=== PATIENT | female | born 1975 | race Caucasian/White ===

== ENCOUNTER 2016-07-28 10:50 | Inpatient (IN) | payer OTHER ==
[~2016-07-28] VITALS: Ht 154.9 cm; Wt 55.1 kg
[~2016-07-28 10:50] MED LIST: DOXY100T18 PO; LISI-519 PO; LORTA5 PO; METR-1 PO
[2016-07-28 10:54] VITALS: BP 132/84; PULSE 128; RESP 24; TEMP 98.8; O2SAT 100
--- NOTE | 2016-07-28 14:48 | PD ---
HPI Chief Complaint: Medical Clearance Time Seen by Provider: 14:47 Travel History International Travel<30 days: No Contact w/Intl Traveler<30days: No Traveled to known affect area: No History of Present Illness HPI 40-year-old female came to the emergency room with history of right shoulder pain for past 3-4 days. Patient seems to be in significant pain and distress. Her temperature was 100.9 after she was brought in the room. Patient is an IV drug abuser although her last IV drug abuse was 3 weeks ago she said. She was tachycardic and in triage it was 128. She denies of any other significant past medical history. [facility] Past Medical History Narrative Medical History of IV drug abuse. Rest of her past medical, social and family history was reviewed from the nursing note. Hypertension: Yes Immunizations Current: No Tetanus Vaccination: Never Vaccinated Influenza Vaccination: No ?: Unknown LMP: MONTHS : 3 Para: 3 Past Surgical History Surgical History: No Previous Surgery Section: Yes Social History Alcohol Use: Yes (EVERY OTHER DAY ) Tobacco Use: Yes Substance Use: Yes (PAST HEROIN IV) Allergies-Medications (Allergen,Severity, Reaction): Coded Allergies: Penicillin (Verified Allergy, Mild, Rash, 07/30/16) *MDRO Multi-Drug Resistant Organism (Verified Adverse Reaction, Unknown, 04/20/16) MRSA PCR screen POSITIVE - 04/19/16 Comments List of allergies reviewed from the nursing note. Reported Meds & Prescriptions Reported Meds & Active Scripts Active Lisinopril 5 Mg Tab 5 Mg PO DAILY Narrative Medication List of home medications reviewed from the nursing note. Review of Systems Except as stated in HPI: all other systems reviewed are Neg Physical Exam Narrative GENERAL: Awake, alert, anxious, significant distress SKIN: Warm and dry. Right shoulder area the skin is erythematous and warm and extremely tender to touch. HEAD: Atraumatic. Normocephalic. EYES: Pupils equal and round. No scleral icterus. No injection or drainage. ENT: No nasal bleeding or discharge. Mucous membranes pink and moist. NECK: Trachea midline. No JVD. CARDIOVASCULAR: Regular rate and rhythm. No murmur appreciated. RESPIRATORY: No accessory muscle use. Clear to auscultation. Breath sounds equal bilaterally. GASTROINTESTINAL: Abdomen soft, non-tender, nondistended. Hepatic and splenic margins not palpable. MUSCULOSKELETAL: No obvious deformities. No clubbing. No cyanosis. No edema. Decreased range of motion at the right shoulder joint due to severe pain. NEUROLOGICAL: Awake and alert. No obvious cranial nerve deficits. Motor grossly within normal limits. Normal speech. PSYCHIATRIC: Appropriate mood and affect; insight and judgment normal. Data Data Last Documented VS Vital Signs Date Time Temp Pulse Resp B/P Pulse Ox O2 Delivery O2 Flow Rate FiO2 07/28/16 16:38 22 07/28/16 15:40 99 Room Air 07/28/16 14:36 105 07/28/16 10:54 98.8 132/84 Orders Electrocardiogram (07/28/16 13:22) Complete Blood Count With Diff (07/28/16 13:22) Comprehensive Metabolic Panel (07/28/16 13:22) Iv Access Insert/Monitor (07/28/16 13:22) Lactic Acid Sepsis Protocol (07/28/16 15:13) Urinalysis - C+S If Indicated (07/28/16 15:13) Blood Culture (07/28/16 15:13) Chest, Single Ap (07/28/16 15:13) Blood Glucose (07/28/16 15:13) Ecg Monitoring (07/28/16 15:13) Oximetry (07/28/16 15:13) Oxygen Administration (07/28/16 15:13) Aztreonam Inj (Azactam Inj) (07/28/16 15:13) Vancomycin Inj (Vancomycin Inj) (07/28/16 15:13) Sodium Chlor 0.9% 1000 Ml Inj (Ns 1000 M (07/28/16 15:13) Sodium Chlor 0.9% 1000 Ml Inj (Ns 1000 M (07/28/16 15:13) Ketorolac Inj (Toradol Inj) (07/28/16 15:15) Westergren Sedimentation Rate (07/28/16 15:55) Sodium Chlor 0.9% 1000 Ml Inj (Ns 1000 M (07/28/16 16:30) C-Reactive Protein (Crp) (07/28/16 16:20) Shoulder, Limited(2vws) (07/28/16 ) Ibuprofen (Motrin) (07/28/16 17:00) Ct Shoulder W Iv Contrast (07/28/16 ) Admit Order (Ed Use Only) (07/28/16 17:05) Labs Laboratory Tests Test 07/28/16 15:20 White Blood Count 22.8 TH/MM3 Red Blood Count 4.48 MIL/MM3 Hemoglobin 13.7 GM/DL Hematocrit 39.7 % Mean Corpuscular Volume 88.6 FL Mean Corpuscular Hemoglobin 30.7 PG Mean Corpuscular Hemoglobin 34.7 % Concent Red Cell Distribution Width 14.4 % Platelet Count 192 TH/MM3 Mean Platelet Volume 9.2 FL Neutrophils (%) (Auto) 88.4 % Lymphocytes (%) (Auto) 5.4 % Monocytes (%) (Auto) 6.0 % Eosinophils (%) (Auto) 0.1 % Basophils (%) (Auto) 0.1 % Neutrophils # (Auto) 20.2 TH/MM3 Lymphocytes # (Auto) 1.2 TH/MM3 Monocytes # (Auto) 1.4 TH/MM3 Eosinophils # (Auto) 0.0 TH/MM3 Basophils # (Auto) 0.0 TH/MM3 CBC Comment DIFF FINAL Differential Comment Erythrocyte Sedimentation Rate 27 mm/hr Sodium Level 129 MEQ/L Potassium Level 4.2 MEQ/L Chloride Level 94 MEQ/L Carbon Dioxide Level 26.2 MEQ/L Anion Gap 9 MEQ/L Blood Urea Nitrogen 19 MG/DL Creatinine 0.97 MG/DL Estimat Glomerular Filtration 64 ML/MIN Rate Random Glucose 117 MG/DL Lactic Acid Level 1.8 mmol/L Calcium Level 9.1 MG/DL Total Bilirubin 0.4 MG/DL Aspartate Amino Transf 31 U/L (AST/SGOT) Alanine Aminotransferase 22 U/L (ALT/SGPT) Alkaline Phosphatase 102 U/L C-Reactive Protein 28.90 MG/DL Total Protein 8.2 GM/DL Albumin 3.2 GM/DL Human Chorionic Gonadotropin, LESS THAN 1 Quant MIU/ML MDM Medical Decision Making Medical Screen Exam Complete: Yes Emergency Medical Condition: Yes Medical Record Reviewed: Yes Interpretation(s) Twelve-lead EKG was reviewed by me. Normal sinus rhythm, normal axis, tachycardia, inverted T waves in inferior leads. Differential Diagnosis Sepsis, septic joint effusion, osteomyelitis Narrative Course 4:24 PM patient is given IV vancomycin and aztreonam. IV fluid been given as per sepsis protocol. Blood test results of back and patient has significant leukocytosis. I have given her IV Toradol for her pain. Awaiting for the x- ray to be done and resulted. Patient will require admission. 4:52 PM x-rays are done. I took a look at them and they look to be within normal limit. Awaiting for the hospitalist to call back for admission. Critical Care Narrative Aggregate critical care time was 30 minutes. Time to perform other separately billable procedures was not included in the critical care time. My time did not include minutes spent treating any other patients simultaneously or on activities that did not directly contribute to the patient's treatment. The services I provided to this patient were to treat and/or prevent clinically significant deterioration that could result in: Sepsis, sepsis protocol I provided critical care services requiring my management, as noted below: Chart data review, documentation time, medication orders and management, vital sign assessments/reviewing monitor data, ordering and reviewing lab tests, ordering and interpreting/reviewing x-rays and diagnostic studies, care of the patient and discussion of the patient with the admitting physicians. Procedures Procedure Narrative Emergency department US guided peripheral IV was performed with patient consent. Linear probe was used in the transverse views of the peripheral vein to assist with vascular access. 20-gauge Angiocath was put in left EJ in Trendelenburg position. Patient tolerated the procedure well. EKG Prior to Arrival: No Diagnosis Primary Impression: Sepsis Qualified Code: A41.9 - Sepsis, due to unspecified organism Additional Impressions: Polysubstance dependence Right shoulder pain Qualified Code: M25.511 - Acute pain of right shoulder Hyponatremia Admitting Information Admitting Physician Requests: Admit Scripts Hydrocodone-Acetaminophen ([place])7.5-325 mg Tab1 Tab PO Q6H PRN (PAIN) #60 TAB Ref 0 Prov:Mehdi Hernandez MD 07/31/16 Mukund Rivas MD Jul 28, 2016 14:48
[2016-07-28] MEDS ORDERED: AZTREONAM INJ 2,000 MG in SODIUM CHLORIDE 0.9% INJ 100 ML IV STA (15:13)
[2016-07-28] MEDS ORDERED: SODIUM CHLOR 0.9% 1000 ML INJ 800 ML IV ONE (15:13)
[2016-07-28] MEDS ORDERED: SODIUM CHLOR 0.9% 1000 ML INJ 1,000 ML IV ONE ×2 (15:13→16:30)
[2016-07-28] MEDS ORDERED: VANCOMYCIN INJ 1,000 MG in SODIUM CHLOR 0.9% 250 ML INJ 250 ML IV STA (15:13)
[2016-07-28] MEDS ORDERED: KETOROLAC TROMETHAMINE 30 MG/ML (IVP) VIAL IV PUSH ONE (15:15)
[2016-07-28 15:40] VITALS: O2SAT 99
[2016-07-28 16:02] LABS: ALKALINE PHOSPHATASE 102 U/L (45-117); AUTOMATED NEUTROPHIL # 20.2 TH/MM3 (1.8-7.7); BASOPHIL % 0.1 % (0.0-2.0); EOSINOPHIL % 0.1 % (0.0-4.0); HEMATOCRIT 39.7 % (35.0-46.0); HEMO FLAGS DIFF FINAL; LYMPH % 5.4 % (9.0-44.0); LYMPHOCYTE # 1.2 TH/MM3 (1.0-4.8); MEAN CELL VOLUME 88.6 FL (80.0-100.0); MEAN CORPUSCULAR HEMOGLOBIN 30.7 PG (27.0-34.0); MEAN CORPUSCULAR HGB CONC 34.7 % (32.0-36.0); NEUT % 88.4 % (16.0-70.0); PLATELET COUNT 192 TH/MM3 (150-450); RED BLOOD COUNT 4.48 MIL/MM3 (4.00-5.30); RED CELL DISTRIBUTION WIDTH 14.4 % (11.6-17.2); TOTAL BILIRUBIN ADULT 0.4 MG/DL (0.2-1.0); WHITE BLOOD COUNT 22.8 TH/MM3 (4.0-11.0)
[2016-07-28 16:05] LABS: ALT (GPT) 22 U/L (10-53); ANION GAP 9 MEQ/L (5-15); AST (GOT) 31 U/L (15-37); BICARBONATE 26.2 MEQ/L (21.0-32.0); BLOOD UREA NITROGEN 19 MG/DL (7-18); CHLORIDE 94 MEQ/L (98-107); GLOMERULAR FILTRATION RATE 64 ML/MIN (>89); POTASSIUM 4.2 MEQ/L (3.5-5.1); SODIUM (NA) 129 MEQ/L (136-145)
--- NOTE | 2016-07-28 16:39 | RADRPT ---
EXAM DATE/TIME: 07/28/2016 16:21 [facility] COMPARISON: CHEST SINGLE AP, April 18, 2016, 8:53. INDICATIONS : Fever. MEDICAL HISTORY : Hypertension. SURGICAL HISTORY : None. ENCOUNTER: Initial ACUITY: 1 day PAIN SCORE: 0/10 LOCATION: Bilateral chest FINDINGS: A single view of the chest demonstrates the lungs to be symmetrically aerated without evidence of mas s, infiltrate or effusion. The cardiomediastinal contours are unremarkable. Osseous structures are intact. CONCLUSION: No acute cardiopulmonary process. Joe Hodges MD on July 28, 2016 at 16:32 Board Certified Radiologist. This report was verified electronically.
--- NOTE | 2016-07-28 16:53 | RADRPT ---
EXAM DATE/TIME: 07/28/2016 16:16 [facility] COMPARISON: No previous studies available for comparison. INDICATIONS : Right shoulder pain, unknown injury. MEDICAL HISTORY : None. SURGICAL HISTORY : None. ENCOUNTER: Initial ACUITY: 1 day PAIN SCORE: 10/10 LOCATION: Right shoulder. FINDINGS: Two view examination of the right shoulder demonstrates no evidence of fracture or dislocation. The glenohumeral and acromioclavicular joints are maintained. Bony mineralization is normal. CONCLUSION: No acute osseous injury or significant degenerative changes. Joe Hodges MD on July 28, 2016 at 16:52 Board Certified Radiologist. This report was verified electronically.
[2016-07-28] MEDS ORDERED: IBUPROFEN 600 MG TAB PO ONE (17:00)
[2016-07-28] MEDS ORDERED: ONDANSETRON HCL 4 MG/2 ML VIAL IV PUSH PRN (18:15)
--- NOTE | 2016-07-28 18:21 | HHI.HP ---
[facility] Service [place] [facility] Primary Care Physician No Primary Care Physician Admission Diagnosis sepsis, right shoulder pain Diagnoses: Chief Complaint: Right shoulder pain Travel History International Travel<30 Days: No Contact w/Intl Traveler <30 Da: No Traveled to Known Affected Are: No Sepsis Criteria SIRS Criteria (2 or more): Temp > 100.9 or < 96.8, Heart rate over 90, WBC > 62645, < 4000 or > 10% bands Sepsis Criteria (SIRS+source): Infect source susp/known History of Present Illness Patient is a very pleasant 40-year-old female who admits to active IV drug heroine plus cocaine who states that he did his last IV injection about 4 weeks ago. 3 days ago started having right shoulder pain constant associated with fever of 101.9 MAXIMUM with chills. Patient self medicated with Tylenol with no improvement. This morning woke up unable to move her right joint shoulder joint which prompted patient to call EMS Temperature here in the ER was 100.9 white count of 22,000 . Patient complains of generalized aches and pains, very emotional and hysterical. Patient admitted for further evaluation and management Patient denies any history of previous MRSA infections, endocarditis or sepsis LMP 6 months ago - irregular cycles states history of hypertension but can't afford meds Review of Systems Constitutional: DENIES: Diaphoretic episodes, Fatigue, Fever, Weight gain, Weight loss, Chills, Dizziness, Change in appetite, Night Sweats Endocrine: DENIES: Abnorml menstrual pattern, Heat/cold intolerance, Polydipsia , Polyuria, Polyphagia Eyes: DENIES: Blurred vision, Diplopia, Eye inflammation, Eye pain, Vision loss , Photosensitivity, Double Vision Ears, nose, mouth, throat: DENIES: Tinnitus, Hearing loss, Vertigo, Nasal discharge, Oral lesions, Throat pain, Hoarseness, Ear Pain, Running Nose, Epistaxis, Sinus Pain, Toothache, Odynophagia Respiratory: DENIES: Apneas, Cough, Snoring, Wheezing, Hemoptysis, Sputum production, Shortness of breath Cardiovascular: DENIES: Chest pain, Palpitations, Syncope, Dyspnea on Exertion , PND, Lower Extremity Edema, Orthopnea, Claudication Gastrointestinal: DENIES: Abdominal pain, Black stools, Bloody stools, Constipation, Diarrhea, Nausea, Vomiting, Difficulty Swallowing, Anorexia Genitourinary: DENIES: Abnormal vaginal bleeding, Dysmenorrhea, Dyspareunia, Sexual dysfunction, Urinary frequency, Urinary incontinence, Urgency, Hematuria , Dysuria, Nocturia, Vaginal discharge Musculoskeletal: COMPLAINS OF: Joint pain (right shoulder), DENIES: Muscle aches, Stiffness, Joint Swelling, Back pain, Neck pain Integumentary: DENIES: Abnormal pigmentation, Pruritus, Rash, Nail changes, Breast masses, Breast skin changes, Nipple discharge Hematologic/lymphatic: DENIES: Bruising, Lymphadenopathy Immunologic/allergic: DENIES: Eczema, Urticaria Neurologic: DENIES: Abnormal gait, Headache, Localized weakness, Paresthesias, Seizures, Speech Problems, Tremor, Poor Balance Psychiatric: DENIES: Anxiety, Confusion, Mood changes, Depression, Hallucinations, Agitation, Suicidal Ideation, Homicidal Ideation, Delusions Past Family Social History Past Medical History States history of hypertension but not on any medications because the patient she can't afford the medications. Past Surgical History No major surgeries Reported Medications Tylenol when necessary for pain Allergies: Coded Allergies: Penicillin (Verified Allergy, Severe, 07/28/16) ALLERGY *MDRO Multi-Drug Resistant Organism (Verified Adverse Reaction, Unknown, 04/20/16) MRSA PCR screen POSITIVE - 04/19/16 Family History per patient unknown Social History Smokes 1 pack per day Admits to IV cocaine and heroine use last use about 4 weeks ago alcohol use 1 to twice a week Physical Exam Vital Signs Vital Signs Date Time Temp Pulse Resp B/P Pulse Ox O2 Delivery O2 Flow Rate FiO2 07/28/16 16:38 22 07/28/16 15:40 99 Room Air 07/28/16 15:40 99 Room Air 07/28/16 14:36 105 26 07/28/16 10:54 98.8 128 24 132/84 100 Room Air Physical Exam GENERAL: Awake alert in pain SKIN: multiple old healed wounds HEAD: Atraumatic. Normocephalic. No temporal or scalp tenderness. EYES: Pupils equal round and reactive. Extraocular motions intact. ENT: Nose without bleeding, Throat without erythema, Uvula midline. Airway patent. NECK: Trachea midline. No JVD or lymphadenopathy. Supple, right side of the neck tender and erythema no meningeal signs. CARDIOVASCULAR: Tachycardic and regular rhythm without murmurs, gallops, or rubs. RESPIRATORY: Clear to auscultation. Breath sounds equal bilaterally. No wheezes , rales, or rhonchi. GASTROINTESTINAL: Abdomen soft, non-tender, nondistended.. No guarding. MUSCULOSKELETAL: Right shoulder with marked erythema and swelling very tender to touch with fluctuance - Very limited range of motion Right second toe with marked erythema. Right knee with area of erythema no swelling , no effusion, good range of motion No calf tenderness. Negative Homans sign bilaterally. NEUROLOGICAL: Awake and alert. Cranial nerves II through XII intact. Movement of the right upper extremity limited to range of motion Laboratory Laboratory Tests Test 07/28/16 15:20 White Blood Count 22.8 Red Blood Count 4.48 Hemoglobin 13.7 Hematocrit 39.7 Mean Corpuscular Volume 88.6 Mean Corpuscular Hemoglobin 30.7 Mean Corpuscular Hemoglobin 34.7 Concent Red Cell Distribution Width 14.4 Platelet Count 192 Mean Platelet Volume 9.2 Neutrophils (%) (Auto) 88.4 Lymphocytes (%) (Auto) 5.4 Monocytes (%) (Auto) 6.0 Eosinophils (%) (Auto) 0.1 Basophils (%) (Auto) 0.1 Neutrophils # (Auto) 20.2 Lymphocytes # (Auto) 1.2 Monocytes # (Auto) 1.4 Eosinophils # (Auto) 0.0 Basophils # (Auto) 0.0 CBC Comment DIFF FINAL Differential Comment Erythrocyte Sedimentation Rate 27 Sodium Level 129 Potassium Level 4.2 Chloride Level 94 Carbon Dioxide Level 26.2 Anion Gap 9 Blood Urea Nitrogen 19 Creatinine 0.97 Estimat Glomerular Filtration 64 Rate Random Glucose 117 Lactic Acid Level 1.8 Calcium Level 9.1 Total Bilirubin 0.4 Aspartate Amino Transf 31 (AST/SGOT) Alanine Aminotransferase 22 (ALT/SGPT) Alkaline Phosphatase 102 C-Reactive Protein 28.90 Total Protein 8.2 Albumin 3.2 Date/Time Procedure Status Source Growth 07/28/16 15:25 Aerobic Blood Culture Received Blood Peripheral Pending 07/28/16 15:25 Anaerobic Blood Culture Received Blood Peripheral Pending Result Diagram: 07/28/16 1520 07/28/16 1520 Imaging Last Impressions Chest X-Ray 07/28/16 1513 Signed Impressions: Service Date/Time: July 16:21 - CONCLUSION: No acute cardiopulmonary process. Joe Hodges MD Shoulder X-Ray 07/28/16 0000 Signed Impressions: Service Date/Time: July 16:16 - CONCLUSION: No acute osseous injury or significant degenerative changes. Joe Hodges MD Septic Shock Reassessment Heart: Regular rate and rhythm Lungs: Clear Skin: Warm Peripheral Pulses: Bounding Right Radial Bounding Left Radial Bounding Right Popliteal Bounding Left Popliteal Bounding Right Dorsalis Pedis Bounding Left Dorsalis Pedis Bounding Right Posterior Tibial Bounding Left Posterior Tibial Capillary Refill: Brisk Assessment and Plan Assessment and Plan 40-year-old female presenting with Sepsis secondary to Septic right shoulder joint r/o underlying abscess/ osteomyelitis., right second toe cellulitis, right knee cellulitis CT of right shoulder ordered - check for fluid and if positive- order for aspiration and will send fluid studies. Start patient on IV vancomycin and IV Levaquin after fluid studies sent Follow CBC History of IV drug use Percocet when necessary for pain every 4 Discussed with her will not give any IV pain meds HYponatremia- mild ff lytes. check TSH PPI for GI prophylaxis Physician Certification 2 Midnight Certification Type: Admission for Inpatient Services Order for Inpatient Services The services are ordered in accordance with Medicare regulations or non- Medicare payer requirements, as applicable. In the case of services not specified as inpatient-only, they are appropriately provided as inpatient services in accordance with the 2-midnight benchmark. Estimated LOS (days): 3 days is the estimated time the patient will need to remain in the hospital, assuming treatment plan goals are met and no additional complications. Post-Hospital Plan: Not yet determined Kermit Villasenor MD Jul 28, 2016 18:20
[2016-07-28 19:09] LABS: BETA HCG QUANT LESS THAN 1 MIU/ML (0-5)
[2016-07-28 19:23] VITALS: BP 137/88; PULSE 104; RESP 18; TEMP 98.9; O2SAT 100
[2016-07-28] MEDS ORDERED: IOHEXOL 350 MG/ML 10 ML VIAL (for RAD DIAG) IV ONE (19:43)
[2016-07-28] MEDS: SODIUM CHLOR 0.9% 1000 ML INJ 1,000 ML IV SCH (19:55)
--- NOTE | 2016-07-28 19:55 | RADRPT ---
EXAM DATE/TIME: 07/28/2016 19:39 [facility] COMPARISON: SHOULDER RIGHT LTD (2VWS), July 28, 2016, 16:16. INDICATIONS : Right shoulder pain and erythema; evaluate for infection. IV CONTRAST: 68 cc Omnipaque 350 (iohexol) IV RADIATION DOSE: 12.08 CTDIvol (mGy) MEDICAL HISTORY : Hypertension. Substance abuse - heroin SURGICAL HISTORY : section. ENCOUNTER: Initial ACUITY: 1 day PAIN SCALE: 7/10 LOCATION: Right Shoulder TECHNIQUE: Volumetric scanning of the shoulder was performed. Using automated exposure control and adjustment o f the mA and/or kV according to patient size, radiation dose was kept as low as reasonably achievable to obtain optimal diagnostic quality images. FINDINGS: BONES: No evidence of fracture. Alignment is within normal limits. JOINTS: No evidence of joint narrowing or effusion. SOFT TISSUES: Muscles, tendons, and neurovascular structures are grossly unremarkable. The integrity of the rotato r cuff tendons cannot be reliably evaluated on CT without intra-articular contrast. No evidence of m ass, organized fluid collection, or foreign body. CONCLUSION: No acute bony abnormality. Bob Alford MD on July 28, 2016 at 19:50 Board Certified Radiologist. This report was verified electronically.
[2016-07-28] MEDS: oxyCODONE/ACETAMINOPHEN 5 MG/325 MG TAB PO PRN (19:56)
[2016-07-28] MEDS ORDERED: LEVOFLOXACIN 750 MG PREMIX INJ 150 ML IV SCH (20:00)
[2016-07-28] MEDS ORDERED: PANTOPRAZOLE SODIUM 40 MG VIAL IV PUSH SCH (20:00)
[2016-07-29] MEDS: oxyCODONE/ACETAMINOPHEN 5 MG/325 MG TAB PO PRN ×6 (00:11→21:59)
[2016-07-29 03:39] VITALS: BP 137/87; PULSE 90; RESP 18; O2SAT 97
[2016-07-29] MEDS: SODIUM CHLOR 0.9% 1000 ML INJ 1,000 ML IV SCH ×2 (04:11→16:17)
--- NOTE | 2016-07-29 07:51 | HHI.PR ---
Subjective Remarks patient feeling better this am, pain decreased, smiling now and interactive. T down voiding well, denies any chills she is in better spirits- pain controlled denies any constipation Objective Vitals Vital Signs Date Time Temp Pulse Resp B/P Pulse Ox O2 Delivery O2 Flow Rate FiO2 07/29/16 03:39 90 18 137/87 97 Room Air 07/28/16 19:23 98.9 104 18 137/88 100 Room Air 07/28/16 16:38 22 07/28/16 15:40 99 Room Air 07/28/16 15:40 99 Room Air 07/28/16 14:36 105 26 07/28/16 10:54 98.8 128 24 132/84 100 Room Air Result Diagram: 07/28/16 1520 07/28/16 1520 Imaging Last Impressions Chest X-Ray 07/28/16 1513 Signed Impressions: Service Date/Time: July 16:21 - CONCLUSION: No acute cardiopulmonary process. Joe Hodges MD Upper Extremity CT 07/28/16 0000 Signed Impressions: Service Date/Time: July 19:39 - CONCLUSION: No acute bony abnormality. Bob Alford MD Shoulder X-Ray 07/28/16 0000 Signed Impressions: Service Date/Time: July 16:16 - CONCLUSION: No acute osseous injury or significant degenerative changes. Joe Hodges MD Objective Remarks awake and alert, oriented x 3 anicteric no nuchal rigidity right shoulder - with persistent erythema, almond cutting machine tender to touch, softer- decrease fluctuance more range of motion during passive range of motion lungs clear regular rhythm abdomen soft, notender right knee- area of erythema on initial exam resolved, good range of motion right second toe erythema swelling and erythema persists- moves toes freely A/P Assessment and Plan 40-year-old female presenting with Sepsis secondary to Septic right shoulder joint with Cellulitis, right second toe cellulitis right knee erythema improved CT reviewed with Dr. Tate- no fluid collection. On IV Vancomycin. will DC Levaquin Follow CBC. ff blood cultures will get ID involved for recommendations PT consult- right shoulder eval and treat- to prevent frozen shoulder- History of IV drug use Percocet when necessary for pain every 4 Discussed with her will not give any IV pain meds HYponatremia- mild ff lytes. check TSH Zantac for GI prophylaxis patient up and ambulating Kermit Villasenor MD Jul 29, 2016 07:51
[2016-07-29 08:57] VITALS: BP 122/80; PULSE 88; RESP 19; TEMP 97.9; O2SAT 100
[2016-07-29] MEDS ORDERED: VANCOMYCIN INJ 1,000 MG in SODIUM CHLOR 0.9% 250 ML INJ 250 ML IV SCH (09:00)
[2016-07-29] MEDS: FAMOTIDINE 20 MG TAB PO SCH ×2 (09:00→21:58)
[2016-07-29] MEDS: VANCOMYCIN 1,000 MG/NS 250 ML IV SCH ×2 (09:00)
[2016-07-29 11:08] LABS: BACTERIA, URINE FEW /hpf; BLOOD, URINE SMALL (NEG); GLUCOSE,URINE 150 mg/dL (NEG); GRANULAR CAST, URINE 1 /lpf; KETONE, URINE NEG (NEG); MUCUS URINE FEW /lpf (OCC); NITRITE,URINE NEG (NEG); PH, URINE 5.5 (5.0-8.5); SQUAMOUS EPITHELIAL CELL URINE 6 /hpf (0-5); TRANSITIONAL EPI CELLS, URINE <1 /hpf; URINE COLOR YELLOW (YELLW/STRAW)
[2016-07-29 11:10] LABS: AMPHETAMINE, URINE NEG (NEG); BARBITURATES, URINE NEG (NEG); COCAINE, URINE POS (NEG)
[2016-07-29 11:12] LABS: COMMENT (UR) CATH-CULTURE IND; CULTURE IF INDICATED CATH CULTURE IND
[2016-07-29 12:00] VITALS: BP 136/93; PULSE 95; RESP 20; TEMP 95.7; O2SAT 100
[2016-07-29 12:04] LABS: AUTOMATED NEUTROPHIL # 9.9 TH/MM3 (1.8-7.7); BASOPHIL % 0.1 % (0.0-2.0); EOSINOPHIL # 0.1 TH/MM3 (0-0.4); EOSINOPHIL % 0.9 % (0.0-4.0); HEMATOCRIT 35.4 % (35.0-46.0); HEMO FLAGS DIFF FINAL; LYMPH % 11.6 % (9.0-44.0); LYMPHOCYTE # 1.4 TH/MM3 (1.0-4.8); MEAN CELL VOLUME 90.6 FL (80.0-100.0); MEAN CORPUSCULAR HEMOGLOBIN 30.2 PG (27.0-34.0); MEAN CORPUSCULAR HGB CONC 33.4 % (32.0-36.0); MONO % 7.9 % (0.0-8.0); NEUT % 79.5 % (16.0-70.0); PLATELET COUNT 122 TH/MM3 (150-450); RED CELL DISTRIBUTION WIDTH 14.7 % (11.6-17.2); WHITE BLOOD COUNT 12.5 TH/MM3 (4.0-11.0)
[2016-07-29 12:26] LABS: BICARBONATE 25.2 MEQ/L (21.0-32.0); POTASSIUM 3.7 MEQ/L (3.5-5.1)
--- NOTE | 2016-07-29 12:37 | PD.CONS ---
History of Present Illness Service Infectious disease Consult Requested By Dr Artis Villasenor Reason for Consult Evaluate patient with sepsis, right shoulder cellulitis, history of IV drug use Primary Care Physician No Primary Care Physician Diagnoses: History of Present Illness Patient seen and examined. Records reviewed. Patient is a 40-year-old female sent into the hospital complaining of pain and redness on her right shoulder. It started about 3 days prior to admission. She woke up that day and she was feeling fine, but that night she had an acute onset of significant pain on her right shoulder. It progressively worsened that she has significant pain with any kind of movement. She was having some fevers. She denies any significant respiratory complaint, or any GI complaints. She is complaining of significant myalgias and diffuse body aches. Patient has known IV drug use, but the last time she used it was about 4 weeks ago. She usually injects on her left side. She has not had any trauma. That day however she was coloring her hair and she could not really have any difficult time during the process. Patient had 2 blood cultures done and they are growing gram-positive cocci. Her white count was up to 22,000. She had a fever of 100.9. The CT of the shoulder which did not show any significant fluid in the joint or any bony abnormality. Patient currently still complaining of significant pain. She actually holds her right upper extremity close to her body. Infectious disease consultation has been requested to evaluate the patient. Review of Systems Constitutional: COMPLAINS OF: Fever, Chills, Night Sweats Ears, nose, mouth, throat: DENIES: Nasal discharge, Oral lesions, Throat pain, Ear Pain, Sinus Pain, Toothache Respiratory: DENIES: Cough, Shortness of breath Cardiovascular: DENIES: Chest pain, Palpitations Gastrointestinal: DENIES: Abdominal pain, Diarrhea, Nausea, Vomiting Genitourinary: DENIES: Urinary frequency, Hematuria, Dysuria Musculoskeletal: COMPLAINS OF: Joint pain, Muscle aches, Joint Swelling Integumentary: DENIES: Rash, Breast skin changes Immunologic/allergic: DENIES: Urticaria Neurologic: DENIES: Headache Psychiatric: COMPLAINS OF: Anxiety, DENIES: Hallucinations Past Family Social History Allergies: Coded Allergies: Penicillin (Verified Allergy, Severe, 07/28/16) ALLERGY *MDRO Multi-Drug Resistant Organism (Verified Adverse Reaction, Unknown, 04/20/16) MRSA PCR screen POSITIVE - 04/19/16 Past Medical History History of hypertension, not on meds Past Surgical History None Active Ordered Medications Tylenol Pepcid Zofran Percocet Vancomycin Social History Smokes 1 pack per day Admits to IV cocaine and heroine use last use about 4 weeks ago alcohol use 1 to twice a week Physical Exam Vital Signs Vital Signs Date Time Temp Pulse Resp B/P Pulse Ox O2 Delivery O2 Flow Rate FiO2 07/29/16 12:25 98 07/29/16 08:57 97.9 88 19 122/80 100 07/29/16 03:39 90 18 137/87 97 Room Air 07/28/16 19:23 98.9 104 18 137/88 100 Room Air 07/28/16 16:38 22 07/28/16 15:40 99 Room Air 07/28/16 15:40 99 Room Air 07/28/16 14:36 105 26 Physical Exam GENERAL: This is a well-nourished, well-developed female, in distress due to the pain in her right shoulder, not in respiratory distress. SKIN: Warm and dry. No generalized rash ecchymosis, or embolic lesions. HEAD: Atraumatic. Normocephalic. No temporal or scalp tenderness. EYES: [place] conjunctivae, no petechia or hemorrhage. Pupils equal round and reactive. Extraocular motions intact. No scleral icterus. No injection or drainage. ENT: Nose without bleeding, or purulent drainage. Moist oral mucosa. Throat without erythema, or exudate. Uvula midline. Airway patent. NECK: Trachea midline. No JVD or lymphadenopathy. Supple, nontender, no meningeal signs. CARDIOVASCULAR: Regular rate and rhythm without murmurs, gallops, or rubs. RESPIRATORY: Clear to auscultation. Breath sounds equal bilaterally. No wheezes , rales, or rhonchi. GASTROINTESTINAL: Abdomen mildly distended, bowel sounds are present and normoactive. No tenderness. No guarding or rebound. No hepato-splenomegaly, or palpable masses. MUSCULOSKELETAL: Pete lower extremities without clubbing, cyanosis, or edema. No joint tenderness, or effusion, or edema noted. No calf tenderness. LUE is unremarkable. RUE - has an area of erythema with tenderness on the top of her shoulder joint, into the supraclavicular area and clavicular area, with some swelling as well in the supraclavicular area, and pain on palpation of the clavicle and top of her shoulder joint. She refused to move her R shoulder joint. Difficult to feel for crepitation due to severe pain. NEUROLOGICAL: Awake and alert. Cranial nerves II through XII intact. Motor and sensory grossly within normal limits. Normal speech. PSYCH: very anxious, but cooperative LINE: PIV with no evidence of infection Laboratory Laboratory Tests Test 07/28/16 07/29/16 07/29/16 15:20 10:20 11:37 White Blood Count 22.8 12.5 Red Blood Count 4.48 3.90 Hemoglobin 13.7 11.8 Hematocrit 39.7 35.4 Mean Corpuscular Volume 88.6 90.6 Mean Corpuscular Hemoglobin 30.7 30.2 Mean Corpuscular Hemoglobin 34.7 33.4 Concent Red Cell Distribution Width 14.4 14.7 Platelet Count 192 122 Mean Platelet Volume 9.2 8.8 Neutrophils (%) (Auto) 88.4 79.5 Lymphocytes (%) (Auto) 5.4 11.6 Monocytes (%) (Auto) 6.0 7.9 Eosinophils (%) (Auto) 0.1 0.9 Basophils (%) (Auto) 0.1 0.1 Neutrophils # (Auto) 20.2 9.9 Lymphocytes # (Auto) 1.2 1.4 Monocytes # (Auto) 1.4 1.0 Eosinophils # (Auto) 0.0 0.1 Basophils # (Auto) 0.0 0.0 CBC Comment DIFF FINAL DIFF FINAL Differential Comment Erythrocyte Sedimentation Rate 27 Sodium Level 129 137 Potassium Level 4.2 3.7 Chloride Level 94 107 Carbon Dioxide Level 26.2 25.2 Anion Gap 9 5 Blood Urea Nitrogen 19 14 Creatinine 0.97 0.72 Estimat Glomerular Filtration 64 91 Rate Random Glucose 117 144 Lactic Acid Level 1.8 Calcium Level 9.1 7.7 Total Bilirubin 0.4 Aspartate Amino Transf 31 (AST/SGOT) Alanine Aminotransferase 22 (ALT/SGPT) Alkaline Phosphatase 102 C-Reactive Protein 28.90 Total Protein 8.2 Albumin 3.2 Human Chorionic Gonadotropin, LESS THAN 1 Quant Urine Color YELLOW Urine Turbidity HAZY Urine pH 5.5 Urine Specific [place] 1.035 Urine Protein 30 Urine Glucose (UA) 150 Urine Ketones NEG Urine Occult Blood SMALL Urine Nitrite NEG Urine Bilirubin NEG Urine Urobilinogen LESS THAN 2.0 Urine Leukocyte Esterase MOD Urine RBC 8 Urine WBC 16 Urine Squamous Epithelial 6 Cells Urine Transitional Epithelial <1 Cells Urine Renal Epithelial Cells Urine Bacteria FEW Urine Granular Casts 1 Urine Mucus FEW Urine Trichomonas RARE Microscopic Urinalysis Comment CATH-CULTURE IND Urine Opiates Screen POS Urine Barbiturates Screen NEG Urine Amphetamines Screen NEG Urine Benzodiazepines Screen NEG Urine Cocaine Screen POS Urine Cannabinoids Screen NEG Date/Time Procedure Status Source Growth 07/29/16 10:20 Urine Culture Received Urine Catheterized Urine Pending 07/28/16 15:25 Aerobic Blood Culture - Preliminary Resulted Blood Peripheral Gram Positive Cocci 07/28/16 15:25 Anaerobic Blood Culture - Preliminary Resulted Gram Positive Cocci Result Diagram: 07/29/16 1137 07/29/16 1137 Imaging RADIOLOGY STUDIES/FILMS REVIEWED Chest X-Ray 07/28/16 1513 Signed Impressions: Service Date/Time: July 16:21 - CONCLUSION: No acute cardiopulmonary process. Joe Hodges MD Upper Extremity CT 07/28/16 0000 Signed Impressions: Service Date/Time: July 19:39 - CONCLUSION: No acute bony abnormality. Bob Alford MD Shoulder X-Ray 07/28/16 0000 Signed Impressions: Service Date/Time: July 16:16 - CONCLUSION: No acute osseous injury or significant degenerative changes. Joe Hodges MD Assessment and Plan Assessment and Plan IMPRESSION Strep sepsis, with infection in the shoulder and supraclavicular area, ? 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 Next time thank you for this consultation Discussed Condition With Explained plan to the patient Shirley Leon MD Jul 29, 2016 12:37
[2016-07-29] MEDS ORDERED: Vancomycin Consult Pharmacy 1 EA OTHER SCH (14:15)
[2016-07-29 16:00] VITALS: BP 137/90; PULSE 101; RESP 20; TEMP 101.7; O2SAT 98
[2016-07-29] MEDS: VANCOMYCIN INJ 750 MG in SODIUM CHLOR 0.9% 250 ML INJ 250 ML IV SCH (16:17)
[2016-07-29] MEDS: ACETAMINOPHEN 325 MG TAB PO PRN (16:18)
--- NOTE | 2016-07-29 17:10 | EKG ---
Date Performed: 07/28/2016 Time Performed: 15:43:03 PTAGE: 40 years EKG: SINUS TACHYCARDIA NONSPECIFIC T-WAVE ABNORMALITY Compared to prior tracing no significant c hange ABNORMAL ECG PREVIOUS TRACING : 04/18/2016 08.04 DOCTOR: Rigoberto Villegas Interpretating Date/Time 12/07/2016 09:44:05
--- NOTE | 2016-07-29 20:03 | EC ---
Study Study Date:07/29/2016 STUDY CONCLUSIONS SUMMARY - Left ventricle: The cavity size was normal. Systolic function was normal. The estimated ejection fraction was in the range of 55% to 60%. Wall motion was normal; there were no regional wall motion abnormalities. - Pulmonary arteries: PA peak pressure: 45mm Hg (S). If LV function is below 40, please consider prescribing an ACEI or ARB or document rationale for non-use. PROCEDURE DATA STUDY STATUS: Elective. Procedure: Transthoracic echocardiography. Image quality was good. Scanning was performed from the parasternal, apical, and subcostal acoustic windows. Study completion: The patient tolerated the procedure well. Transthoracic echocardiography. M-mode, complete 2D, complete spectral Doppler, and color Doppler. Height: Height: 61in. Weight: Weight: 109.8lb. Body mass index: BMI: 20.8kg/m^2. Body surface area: BSA: 1.47m^2. Patient status: Inpatient. CARDIAC ANATOMY LEFT VENTRICLE: The cavity size was normal. Systolic function was normal. The estimated ejection fraction was in the range of 55% to 60%. Wall motion was normal; there were no regional wall motion abnormalities. AORTIC VALVE: The valve appears to be grossly normal. Doppler: There was no stenosis. No significant regurgitation. Valve area: 1.43cm^2(VTI). Indexed valve area: 0.97cm^2/m^2 (VTI). Valve area: 1.32cm^2 (Vmax). Indexed valve area: 0.9cm^2/m^2 (Vmax). Mean gradient: 4mm Hg (S). MITRAL VALVE: The valve appears to be grossly normal. Doppler: There was no evidence for stenosis. No significant regurgitation. LEFT ATRIUM: The atrium was normal in size. RIGHT VENTRICLE: The cavity size was normal. Systolic function was normal. PULMONIC VALVE: The valve appears to be grossly normal. Doppler: There was no evidence for stenosis. No significant regurgitation. TRICUSPID VALVE: The valve appears to be grossly normal. Doppler: There was no evidence for stenosis. Trace to mild regurgitation. PERICARDIUM: There was no pericardial effusion. Patient weight: 109.8lb _Ejection fraction:_ 65-75% _Fractional shortening:_ 32% up to 5Kg 5-11.5Kg 11.6-22.9Kg 23-45Kg 45-57Kg Aortic Root 7-13 <17 13-22 17-27 17-27 LA diam 6-13 <23 24-38 33-47 37-40 RVID 10-17 7-15 7-15 7-18 8-17 LVIDd 12-22 <32 24-38 33-47 37-40 LVPW 2-4 3-6 5-7 6-8 7-8 IVS 2-4 3-6 5-7 6-8 7-8 BASIC MEASUREMENTS ADULT NORMAL Left ventricle LV internal dimension, ED, chordal 43.8 mm 43-52 level, PLAX LV internal dimension, ES, chordal 26.5 mm 23-38 level, PLAX Fractional shortening, chordal level, 39 % >29 PLAX LV posterior wall thickness, ED 9.45 mm IVS/LVPW ratio, ED 1 <1.3 Ventricular septum Septal thickness, ED 9.46 mm Aortic valve Leaflet separation 20 mm 15-26 Aorta Root diameter, ED 26 mm Left atrium Anterior-posterior dimension 26 mm Anterior-posterior dimension index 1.77 cm/m^2 <2.2 BASIC MEASUREMENTS ADULT NORMAL Aortic valve Leaflet separation 20 mm 15-26 DOPPLER MEASUREMENTS ADULT NORMAL Main pulmonary artery Pressure, S *45 mm Hg =30 Aortic valve Peak velocity, S 128 cm/s Mean velocity, S 88.9 cm/s VTI, S 21.3 cm Mean gradient, S 4 mm Hg Valve area, VTI 1.43 cm^2 Valve area index, VTI 0.97 cm^2/m^2 Valve area, Vmax 1.32 cm^2 Valve area index, Vmax 0.9 cm^2/m^2 Mitral valve Peak E-wave velocity 53.3 cm/s Peak A-wave velocity 64.7 cm/s Deceleration time 155 ms 150-230 Peak E/A ratio 0.8 Tricuspid valve Regurgitant peak velocity 299 cm/s Peak RV-RA gradient, S 36 mm Hg Maximal regurgitant velocity 299 cm/s Systemic veins Estimated CVP 10 mm Hg Right ventricle RV pressure, S *46 mm Hg <30 Pulmonic valve Peak velocity, S 52.6 cm/s LEGEND: Mean values are shown as u=mean value. Asterisk (*) adorno values outside specified normal range. Prepared and signed by Candido Kaba [id number]
[2016-07-29 21:02] VITALS: BP 134/81; PULSE 106; RESP 20; TEMP 99.7; O2SAT 98
[2016-07-30 04:00] VITALS: BP 140/86; PULSE 94; RESP 18; TEMP 97.9; O2SAT 98
[2016-07-30] MEDS: oxyCODONE/ACETAMINOPHEN 5 MG/325 MG TAB PO PRN ×3 (05:25→17:29)
[2016-07-30] MEDS: VANCOMYCIN INJ 750 MG in SODIUM CHLOR 0.9% 250 ML INJ 250 ML IV SCH ×2 (05:25→17:27)
[2016-07-30 08:00] VITALS: BP 142/87; PULSE 96; RESP 16; TEMP 98.7; O2SAT 98
[2016-07-30] MEDS: FAMOTIDINE 20 MG TAB PO SCH ×2 (09:10→22:24)
[2016-07-30] MEDS: VANCOMYCIN 1,000 MG/NS 250 ML IV SCH ×2 (09:11)
[2016-07-30 12:00] VITALS: BP 139/91; PULSE 97; RESP 18; TEMP 98.7; O2SAT 99
--- NOTE | 2016-07-30 12:11 | HHI.PR ---
Subjective Remarks pain with movement of right shoulder T max 101 no nausea or vomiting Objective Vitals Vital Signs Date Time Temp Pulse Resp B/P Pulse Ox O2 Delivery O2 Flow Rate FiO2 07/30/16 08:00 98.7 96 16 142/87 98 07/30/16 04:00 97.9 94 18 140/86 98 07/29/16 21:02 99.7 106 20 134/81 98 07/29/16 16:00 101.7 101 20 137/90 98 07/29/16 12:25 98 I/O 07/29/16 07/29/16 07/29/16 07/30/16 07/30/16 07/30/16 07:00 15:00 23:00 07:00 15:00 23:00 Intake Total 480 ml Balance 480 ml Intake Oral 480 ml # Voids 2 2 3 # Bowel Movements 0 Result Diagram: 07/29/16 1137 07/29/16 1137 Imaging Last Impressions Chest X-Ray 07/28/16 1513 Signed Impressions: Service Date/Time: July 16:21 - CONCLUSION: No acute cardiopulmonary process. Joe Hodges MD Upper Extremity CT 07/28/16 0000 Signed Impressions: Service Date/Time: July 19:39 - CONCLUSION: No acute bony abnormality. Bob Alford MD Shoulder X-Ray 07/28/16 0000 Signed Impressions: Service Date/Time: July 16:16 - CONCLUSION: No acute osseous injury or significant degenerative changes. Joe Hodges MD Objective Remarks awake and alert, oriented x 3 anicteric no nuchal rigidity right shoulder - with persistent erythema, winder tender to touch, softer- decrease fluctuance, slightly more range of motion lungs clear regular rhythm abdomen soft, nontender right knee- area of erythema on initial exam resolved, good range of motion right second toe erythema swelling and erythema decrease- moves toes freely A/P Assessment and Plan 40-year-old female presenting with Gram + Sepsis secondary to Septic right shoulder joint with Cellulitis, right second toe cellulitis for MRI of right shoulder- pending CT reviewed with Dr. Tate- no fluid collection. On IV Vancomycin - pharmacy dosing Follow CBC. ff final Blood C and S Appreciate ID recommendations PT consult- right shoulder eval and treat- to prevent frozen shoulder- History of IV drug use Percocet when necessary for pain every 4 Discussed with her will not give any IV pain meds HYponatremia- resolved ff lytes. TSH mildly elevated. recheck in 6-8 weeks Zantac for GI prophylaxis patient up and ambulating Kermit Villasenor MD Jul 30, 2016 12:11
[2016-07-30] MEDS ORDERED: GADODIAMIDE PF 287 MG/ML 10 ML VIAL (for RAD MRI) IV ONE (13:27)
--- NOTE | 2016-07-30 14:19 | RADRPT ---
EXAM DATE/TIME: 07/30/2016 13:05 [facility] COMPARISON: No previous studies available for comparison. INDICATIONS : Cellulitis, right shoulder pain CONTRAST: 10 cc Omniscan (gadodiamide) IV MEDICAL HISTORY : Hypertension. IVDA SURGICAL HISTORY : section. ENCOUNTER: Initial ACUITY: 1 day PAIN SCORE: 6/10 LOCATION: Right shoulder TECHNIQUE: Multiplanar, multisequence MRI examination was performed with and without contrast. FINDINGS: There is heterogeneous marrow edema and decreased T1 signal abnormality in the distal several centime ters of the right clavicle. There is an effusion and synovitis in the acromioclavicular joint. Very l ocalized subchondral signal abnormality seen on the acromion side. In the soft tissues mainly above a nd posterior to the distal end of the right clavicle is a confluence of small rim-enhancing fluid col lections over approximately 6.9 cm transverse, 7.1 cm anterior to posterior and 2.6 cm craniocaudal r egion. Most of this is in trapezius and the subcutaneous tissues. The deltoid is also involved focall y, mainly its anterior and lateral portion near its origin. There is moderate subacromial/subdeltoid bursitis. Rotator cuff is intact. There are mild impingement type cystic changes of the greater tuberosity. Trace glenohumeral joint effusion. No signal changes of the glenoid or humeral head to support osteom yelitis. . CONCLUSION: Osteomyelitis of the distal 3 cm of the clavicle. There is very focal involvement in the subchondral region of the acromion. There is an irregular abscess in the overlying soft tissues, primarily in tra pezius but focally involving deltoid and the overlying subcutaneous fat. The abscess is irregular but estimated at approximately 6.9 x 7.1 x 2.6 cm. The most superficial portion of the fluid collection is about 7 mm beneath the skin. Bob Nieto MD on July 30, 2016 at 14:12 Board Certified Radiologist. This report was verified electronically.
[2016-07-30] MEDS ORDERED: PHARMACY ORDERED LAB XX ONE (15:45)
[2016-07-30 16:00] VITALS: BP 148/97; PULSE 100; RESP 16; TEMP 98.9; O2SAT 98
[2016-07-30] MEDS: ACETAMINOPHEN 325 MG TAB PO PRN ×2 (17:29→22:23)
[2016-07-30 20:00] VITALS: BP 145/79; PULSE 100; RESP 18; TEMP 102; O2SAT 98
[2016-07-30] MEDS ORDERED: HYDROmorphone HCL PF 1 MG/ML VIAL SQ ONE (20:30)
[2016-07-30] MEDS: SODIUM CHLOR 0.9% 1000 ML INJ 1,000 ML IV SCH ×2 (22:29)
--- NOTE | 2016-07-30 23:29 | HHI.IDPN ---
Subjective Subjective Remarks is a 40 y/o F with PMHX of IVDA. Admitted with Strep Sepsis, Right Deltoid abscess, probable endocarditis. Overnight events reviewed. Tmax 102 F Complains of right shoulder pain and decreased range of motion. No rash No diarrhea. Antibiotics Vanco IV Lines Line sites with no e/o infection. Past Medical History IVDA Allergies: Coded Allergies: Penicillin (Verified Allergy, Mild, Rash, 07/30/16) *MDRO Multi-Drug Resistant Organism (Verified Adverse Reaction, Unknown, 04/20/16) MRSA PCR screen POSITIVE - 04/19/16 Objective . Vital Signs Date Time Temp Pulse Resp B/P Pulse Ox O2 Delivery O2 Flow Rate FiO2 07/30/16 20:00 102.0 100 18 145/79 98 07/30/16 16:00 98.9 100 16 148/97 98 07/30/16 12:00 98.7 97 18 139/91 99 07/30/16 08:00 98.7 96 16 142/87 98 07/30/16 04:00 97.9 94 18 140/86 98 07/29/16 07/29/16 07/30/16 15:00 23:00 07:00 Intake Total 480 ml Balance 480 ml Intake Oral 480 ml # Voids 2 3 # Bowel Movements 0 . Laboratory Tests Test 07/29/16 11:37 White Blood Count 12.5 TH/MM3 Red Blood Count 3.90 MIL/MM3 Hemoglobin 11.8 GM/DL Hematocrit 35.4 % Mean Corpuscular Volume 90.6 FL Mean Corpuscular Hemoglobin 30.2 PG Mean Corpuscular Hemoglobin 33.4 % Concent Red Cell Distribution Width 14.7 % Platelet Count 122 TH/MM3 Mean Platelet Volume 8.8 FL Neutrophils (%) (Auto) 79.5 % Lymphocytes (%) (Auto) 11.6 % Monocytes (%) (Auto) 7.9 % Eosinophils (%) (Auto) 0.9 % Basophils (%) (Auto) 0.1 % Neutrophils # (Auto) 9.9 TH/MM3 Lymphocytes # (Auto) 1.4 TH/MM3 Monocytes # (Auto) 1.0 TH/MM3 Eosinophils # (Auto) 0.1 TH/MM3 Basophils # (Auto) 0.0 TH/MM3 CBC Comment DIFF FINAL Differential Comment Laboratory Tests Test 07/29/16 11:37 Sodium Level 137 MEQ/L Potassium Level 3.7 MEQ/L Chloride Level 107 MEQ/L Carbon Dioxide Level 25.2 MEQ/L Anion Gap 5 MEQ/L Blood Urea Nitrogen 14 MG/DL Creatinine 0.72 MG/DL Estimat Glomerular Filtration 91 ML/MIN Rate Random Glucose 144 MG/DL Calcium Level 7.7 MG/DL C-Reactive Protein 16.00 MG/DL Thyroid Stimulating Hormone 4.570 uIU/ML 3rd Gen Microbiology Date/Time Procedure Status Source Growth 07/28/16 15:20 Aerobic Blood Culture - Preliminary Resulted Blood Peripheral Group A Beta Strep 07/28/16 15:20 Anaerobic Blood Culture - Preliminary Resulted Group A Beta Strep 07/28/16 15:25 Aerobic Blood Culture - Preliminary Resulted Blood Peripheral Group A Beta Strep 07/28/16 15:25 Anaerobic Blood Culture - Preliminary Resulted Group A Beta Strep 07/29/16 10:20 Urine Culture - Preliminary Resulted Urine Catheterized Urine NO GROWTH IN 24 HOURS. 07/30/16 15:31 Aerobic Blood Culture Received Blood Peripheral Pending 07/30/16 15:31 Anaerobic Blood Culture Received Blood Peripheral Pending 07/30/16 15:39 Aerobic Blood Culture Received Blood Peripheral Pending 07/30/16 15:39 Anaerobic Blood Culture Received Blood Peripheral Pending Imaging Last Impressions Shoulder MRI 07/30/16 0000 Signed Impressions: Service Date/Time: Saturday, July 30, 2016 13:05 - CONCLUSION: Osteomyelitis of the distal 3 cm of the clavicle. There is very focal involvement in the subchondral region of the acromion. There is an irregular abscess in the overlying soft tissues, primarily in trapezius but focally involving deltoid and the overlying subcutaneous fat. The abscess is irregular but estimated at approximately 6.9 x 7.1 x 2.6 cm. The most superficial portion of the fluid collection is about 7 mm beneath the skin. Bob Nieto MD Chest X-Ray 07/28/16 1513 Signed Impressions: Service Date/Time: July 16:21 - CONCLUSION: No acute cardiopulmonary process. Joe Hodges MD Upper Extremity CT 07/28/16 0000 Signed Impressions: Service Date/Time: July 19:39 - CONCLUSION: No acute bony abnormality. Bob Alford MD Shoulder X-Ray 07/28/16 0000 Signed Impressions: Service Date/Time: July 16:16 - CONCLUSION: No acute osseous injury or significant degenerative changes. Joe Hodges MD Physical Exam GENERAL: This is a well-nourished, well-developed female, in distress due to the pain in her right shoulder, not in respiratory distress. SKIN: Warm and dry. No generalized rash ecchymosis, or embolic lesions. HEAD: Atraumatic. Normocephalic. No temporal or scalp tenderness. EYES: [place] conjunctivae, no petechia or hemorrhage. Pupils equal round and reactive. Extraocular motions intact. No scleral icterus. No injection or drainage. ENT: Nose without bleeding, or purulent drainage. Moist oral mucosa. Throat without erythema, or exudate. Uvula midline. Airway patent. NECK: Trachea midline. No JVD or lymphadenopathy. Supple, nontender, no meningeal signs. CARDIOVASCULAR: Regular rate and rhythm without murmurs, gallops, or rubs. RESPIRATORY: Clear to auscultation. Breath sounds equal bilaterally. No wheezes , rales, or rhonchi. GASTROINTESTINAL: Abdomen mildly distended, bowel sounds are present and normoactive. No tenderness. No guarding or rebound. No hepato-splenomegaly, or palpable masses. MUSCULOSKELETAL: Pete lower extremities without clubbing, cyanosis, or edema. No joint tenderness, or effusion, or edema noted. No calf tenderness. LUE is unremarkable. RUE - has an area of erythema with tenderness on the top of her shoulder joint, into the supraclavicular area and clavicular area, with some swelling as well in the supraclavicular area, and pain on palpation of the clavicle and top of her shoulder joint. Refused ROM exam due to severe pain. NEUROLOGICAL: Awake and alert. Cranial nerves II through XII intact. Motor and sensory grossly within normal limits. Normal speech. PSYCH: very anxious, but cooperative LINE: PIV with no evidence of infection Assessment & Plan Remarks Sepsis present on admission Grp A strep bacteremia Right shoulder myositis/abscess Right clavicle possible osteomyelitis IVDA Recs: Repeat blood cultures x 2 Check Hepatitis profile Check HIV antibody screen Reviewed MRI shoulder. Ortho consult (shoulder myositis/abscess) dw Brand Leader: to increase pain meds NPO for now pending ortho consult. Check PT/INR and PTT in preparation for possible surgery. Will regino Chirinos about CT C/A/P to work up for dissemination/seeding of other vital organs. Patient had 2 imaging ok to wait for now as clinically ok. Continue Vanco IV (target 15-20) for bacteremia. Would consider Ceftriaxone desensitization or challenge next week depending on susceptibilities. Will regino Chirinos. Jeanie Joiner MD Jul 30, 2016 23:29
[2016-07-31] VITALS (7 sets, daily range): BP systolic 130–149; BP diastolic 73–93; PULSE 80–90; RESP 18–20; TEMP 96.2–97.9; O2SAT 98–100
[2016-07-31] MEDS: oxyCODONE/ACETAMINOPHEN 5 MG/325 MG TAB PO PRN ×4 (00:17→21:25)
[2016-07-31 00:46] LABS: APTT (PATIENT) 25.9 SEC (24.3-30.1); INTERNATIONAL NORMALIZED RATIO 0.9 RATIO; PROTHROMBIN TIME - PATIENT 9.8 SEC (9.8-11.6)
[2016-07-31] MEDS: LACTATED RINGER'S 1000 ML IV SCH (05:45)
[2016-07-31] MEDS ORDERED: INSULIN HUMAN REGULAR 1,000 UNITS/10 ML VIAL SQ PRN (05:45)
[2016-07-31] MEDS ORDERED: METOPROLOL TARTRATE 25 MG TAB PO PRN (05:45)
[2016-07-31] MEDS: SODIUM CHLORID 0.9% 500 ML IV SCH ×2 (05:45→22:25)
[2016-07-31] MEDS ORDERED: ceFAZolin 2 GM PREMIX 50 ML ONE (06:08)
[2016-07-31] MEDS ORDERED: GENTAMICIN SULFATE 80 MG/2 ML VIAL ONE ×2 (06:08→09:33)
[2016-07-31] MEDS: VANCOMYCIN 1,000 MG/NS 250 ML IV SCH ×4 (06:13→17:00)
[2016-07-31] MEDS: FAMOTIDINE 20 MG TAB PO SCH ×2 (08:55→21:24)
--- NOTE | 2016-07-31 09:21 | HHI.PR ---
Subjective Remarks pain right shoulder with limited range of motion knows she is going for OR today- MRI shows abscess Objective Vitals Vital Signs Date Time Temp Pulse Resp B/P Pulse Ox O2 Delivery O2 Flow Rate FiO2 07/31/16 08:06 96.2 84 20 149/93 100 07/31/16 05:36 97.1 88 18 137/90 99 07/31/16 00:00 97.9 90 20 130/78 99 07/30/16 20:00 102.0 100 18 145/79 98 07/30/16 16:00 98.9 100 16 148/97 98 07/30/16 12:00 98.7 97 18 139/91 99 I/O 07/30/16 07/30/16 07/30/16 07/31/16 07/31/16 07/31/16 07:00 15:00 23:00 07:00 15:00 23:00 Intake Total 2105 ml Balance 2105 ml Intake Oral 1680 ml IV Total 425 ml # Voids 3 5 2 # Bowel Movements 0 0 Result Diagram: 07/29/16 1137 07/29/16 1137 Imaging Last Impressions Shoulder MRI 07/30/16 0000 Signed Impressions: Service Date/Time: Saturday, July 30, 2016 13:05 - CONCLUSION: Osteomyelitis of the distal 3 cm of the clavicle. There is very focal involvement in the subchondral region of the acromion. There is an irregular abscess in the overlying soft tissues, primarily in trapezius but focally involving deltoid and the overlying subcutaneous fat. The abscess is irregular but estimated at approximately 6.9 x 7.1 x 2.6 cm. The most superficial portion of the fluid collection is about 7 mm beneath the skin. Bob Nieto MD Chest X-Ray 07/28/16 1513 Signed Impressions: Service Date/Time: July 16:21 - CONCLUSION: No acute cardiopulmonary process. Joe Hodges MD Upper Extremity CT 07/28/16 0000 Signed Impressions: Service Date/Time: July 19:39 - CONCLUSION: No acute bony abnormality. Bob Alford MD Shoulder X-Ray 07/28/16 0000 Signed Impressions: Service Date/Time: July 16:16 - CONCLUSION: No acute osseous injury or significant degenerative changes. Joe Hodges MD Objective Remarks awake and alert, oriented x 3 anicteric no nuchal rigidity right shoulder - with persistent erythema,tender to touch, + fluctuance, limited ROM lungs clear regular rhythm abdomen soft, nontender right knee- erythema resolved, good range of motion right second toe erythema swelling and erythema resolved A/P Assessment and Plan 40-year-old female presenting with Gram A beta strep Sepsis secondary to Septic right shoulder/ joint abscess for OR today- Orthopedics consulted On IV Vancomycin - pharmacy dosing Follow CBC. ff final Blood C and S Appreciate ID recommendations- on Vancomycin and Cefepime History of IV drug use Percocet when necessary for pain every 4 Discussed with her will not give any IV pain meds HYponatremia- resolved ff lytes. TSH mildly elevated. recheck in 6-8 weeks Zantac for GI prophylaxis patient up and ambulating Kermit Villasenor MD Jul 31, 2016 09:21
[2016-07-31] MEDS ORDERED: ACETAMINOPHEN 1000 MG/100 ML VIAL IV ONE (09:50)
--- NOTE | 2016-07-31 11:03 | MB ---
cc: AGUEDA BRIAN DATE OF CONSULTATION: 07/31/2016 REASON FOR CONSULTATION: Right shoulder pain. HISTORY The patient is a 40 year-old female who has a 1-week history of severe pain, swelling of the right shoulder, with fevers and chills. She has a history of prior IV drug abuse and has developed Streptococcus infection of the right shoulder including right deltoid abscess and osteomyelitis of the distal clavicle. Based on MRI exam, she has possible endocarditis. The pain is severe and constant. Moving the shoulder causes worsening of symptoms. She has had fever or chills. Her pain is constant and throbbing. She was admitted with sepsis. PAST MEDICAL HISTORY: Hypertension. PAST SURGICAL HISTORY: None. MEDICATIONS: Tylenol upon admission. ALLERGIES PENICILLIN. FAMILY HISTORY: Unknown. SOCIAL HISTORY: She smokes one pack per day. She admits to using cocaine and heroin, and also drinking alcohol. REVIEW OF SYSTEMS: She has had fevers, chills, fatigue, weight loss. All other review of systems is negative for 10 systems other than in the HPI. PHYSICAL EXAMINATION: Temperature 98.2, pulse 84, respiratory rate 20, blood pressure 149/93. Saturating 100% on room air. The patient is awake, alert, lying in bed, in no acute distress. HEENT: Normocephalic, atraumatic. Pupils equal, round, reactive to light and accommodation. Extraocular movements intact. NECK: Supple. LUNGS: Clear. HEART: S1-S2. ABDOMEN: Soft, non-tender. EXTREMITIES: Right shoulder swelling and cellulitis. She is tender to palpation in the right shoulder, anterior and lateral aspect. She has pain with passive motion of the right shoulder. She can flex and extend the elbow, wrists and digits, she has brisk capillary refill, sensation intact distally. IMAGING STUDIES: MRI of the right shoulder showed osteomyelitis of the distal clavicle and subchondral region of the acromion. There is an abscess of the soft tissue swelling including the trapezius and deltoid. IMPRESSION: The patient is a 40 year-old female, IV drug abuser, with osteomyelitis and the right distal clavicle of the acromion which likely started the septic arthritis. This has broken out into a soft tissue abscess as well. PLAN: Discussed the diagnosis with patient as well as treatment options for the option of irrigation and debridement including removal of many infected bone and the region of the acromioclavicular joint and application of wound Vac versus surgery were discussed which include but not limited to anesthesia, bleeding, continued infection, pain, stiffness, blood clots. The patient understands. She is in favor of proceeding with surgery as outlined above. Written consent has been obtained. Surgical site has been marked. MD GOOD Loco/CHOLO /10:25 AM /10:51 AM
[2016-07-31] MEDS ORDERED: HYDR-3288 PO (11:14)
[2016-07-31] MEDS ORDERED: Post-op Orders (for Pharmacy) MISC XX ONE (11:15)
[2016-07-31] MEDS ORDERED: NALOXONE HCL 0.4 MG/ML AMP IV PRN (11:15)
[2016-07-31] MEDS ORDERED: MISCELLANEOUS PHARMACY INFORMATION XX ONE (11:15)
[2016-07-31] MEDS ORDERED: MORPHINE SULFATE 30 MG/30 ML PCA IV SCH (11:15)
[2016-07-31] MEDS ORDERED: SODIUM CHLORIDE 0.9% FLUSH 5 ML FLUSH IVF PRN (11:15)
[2016-07-31] MEDS ORDERED: MAGNESIUM HYDROXIDE SUSP 30 ML CUP PO PRN (11:15)
[2016-07-31] MEDS ORDERED: diphenhydrAMINE HCL 25 MG CAP PO PRN (11:15)
[2016-07-31] MEDS ORDERED: MISCELLANEOUS NURSING INFORMATION XX PRN (11:15)
[2016-07-31] MEDS ORDERED: ONDANSETRON HCL 4 MG/2 ML VIAL IVP PRN (11:15)
[2016-07-31] MEDS ORDERED: ACETAMINOPHEN/HYDROcodone 325 MG/7.5 MG TAB PO PRN (11:15)
[2016-07-31] MEDS ORDERED: MORPHINE SULFATE 4 MG/ML INJ IV PUSH PRN (11:15)
[2016-07-31] MEDS ORDERED: *ONDANSETRON 4 MG VIAL PERIprocedural Use ONLY ONE (11:21)
[2016-07-31] MEDS ORDERED: *morphine SULFATE 8 MG/ML PERIprocedure ONLY ONE (11:26)
[2016-07-31] MEDS: DEXT 5%-NACL 0.45% 1000 ML INJ 1,000 ML IV SCH ×2 (11:30→21:26)
[2016-07-31] MEDS ORDERED: *MEPERIDINE 25 MG INJ VIAL PERIprocedural Use ONLY ONE (11:32)
[2016-07-31] MEDS ORDERED: fentaNYL CITRATE 250 MCG/5 ML AMP ONE (11:37)
[2016-07-31] MEDS ORDERED: *HYDROmorphone PF 1 MG VIAL PERIprocedural Use ONLY ONE (11:38)
[2016-07-31] MEDS ORDERED: ONDANSETRON HCL 4 MG/2 ML VIAL IV PUSH ONE (12:00)
[2016-07-31] MEDS ORDERED: NEOSTIGMINE 3 MG/3 ML SYR IV ONE (12:00)
[2016-07-31] MEDS ORDERED: PROPOFOL 200 MG/20 ML AMP IV ONE (12:00)
[2016-07-31] MEDS ORDERED: PHENYLEPH/NS 1000 MCG/10 ML SYR IV ONE (12:00)
[2016-07-31] MEDS ORDERED: DO NOT ADM ANY ANTICOAGULANT DRUGS XX PRN (12:30)
[2016-07-31] MEDS: PCA - TOTAL MG MORPHINE DELIVERED PER SHIFT SCH ×2 (14:00→21:34)
[2016-07-31] MEDS: SODIUM CHLOR 0.9% 1000 ML INJ 1,000 ML IV SCH (16:00)
--- NOTE | 2016-07-31 18:07 | HHI.IDPN ---
Subjective Subjective Remarks ID Xcover for . is a 40 y/o F with PMHX of IVDA. Admitted with Strep Sepsis, Right Deltoid abscess, probable endocarditis. Overnight events reviewed. Fevers defervesced. Complains of right shoulder pain and decreased range of motion. No rash No diarrhea. Antibiotics Vanco IV Lines Line sites with no e/o infection. Past Medical History IVDA Allergies: Coded Allergies: Penicillin (Verified Allergy, Mild, Rash, 07/30/16) *MDRO Multi-Drug Resistant Organism (Verified Adverse Reaction, Unknown, 04/20/16) MRSA PCR screen POSITIVE - 04/19/16 Objective . Vital Signs Date Time Temp Pulse Resp B/P Pulse Ox O2 Delivery O2 Flow Rate FiO2 07/31/16 16:11 96.5 90 20 140/73 98 07/31/16 16:06 99 21 07/31/16 12:21 15 07/31/16 12:00 97.8 80 20 133/77 98 07/31/16 11:55 97.7 71 15 150/97 99 Nasal Cannula 3 07/31/16 11:45 78 15 149/99 99 Nasal Cannula 3 07/31/16 11:30 73 14 159/99 99 Nasal Cannula 3 07/31/16 11:19 97.2 85 14 152/90 99 Nasal Cannula 3 07/31/16 08:06 96.2 84 20 149/93 100 07/31/16 05:36 97.1 88 18 137/90 99 07/31/16 00:00 97.9 90 20 130/78 99 07/30/16 20:00 102.0 100 18 145/79 98 07/30/16 07/30/16 07/31/16 15:00 23:00 07:00 Intake Total 2105 ml Balance 2105 ml Intake Oral 1680 ml IV Total 425 ml # Voids 5 2 # Bowel Movements 0 0 . Microbiology Date/Time Procedure Status Source Growth 07/29/16 10:20 Urine Culture - Final Complete Urine Catheterized Urine NO GROWTH IN 48 HOURS. 07/30/16 15:31 Aerobic Blood Culture - Preliminary Resulted Blood Peripheral NO GROWTH IN 1 DAY 07/30/16 15:31 Anaerobic Blood Culture - Final Resulted Blood Peripheral ONLY AEROBIC CULTURE ORDERED 07/30/16 15:39 Aerobic Blood Culture - Preliminary Resulted Blood Peripheral NO GROWTH IN 1 DAY 07/30/16 15:39 Anaerobic Blood Culture - Preliminary Resulted Blood Peripheral NO GROWTH IN 1 DAY 07/31/16 10:56 Gram Stain Received Wound Shoulder Pending 07/31/16 10:56 Wound Culture Received Wound Shoulder Pending 07/31/16 10:56 Acid Fast Stain Received Wound Shoulder Pending 07/31/16 10:56 Mycobacterial Culture Received Wound Shoulder Pending 07/31/16 10:56 Fungal Smear Received Wound Shoulder Pending 07/31/16 10:56 Fungal Culture Received Wound Shoulder Pending Imaging Last Impressions Shoulder MRI 07/30/16 0000 Signed Impressions: Service Date/Time: Saturday, July 30, 2016 13:05 - CONCLUSION: Osteomyelitis of the distal 3 cm of the clavicle. There is very focal involvement in the subchondral region of the acromion. There is an irregular abscess in the overlying soft tissues, primarily in trapezius but focally involving deltoid and the overlying subcutaneous fat. The abscess is irregular but estimated at approximately 6.9 x 7.1 x 2.6 cm. The most superficial portion of the fluid collection is about 7 mm beneath the skin. Bob Nieto MD Chest X-Ray 07/28/16 1513 Signed Impressions: Service Date/Time: July 16:21 - CONCLUSION: No acute cardiopulmonary process. Joe Hodges MD Upper Extremity CT 07/28/16 0000 Signed Impressions: Service Date/Time: July 19:39 - CONCLUSION: No acute bony abnormality. Bob Alford MD Shoulder X-Ray 07/28/16 0000 Signed Impressions: Service Date/Time: July 16:16 - CONCLUSION: No acute osseous injury or significant degenerative changes. Joe Hodges MD Physical Exam GENERAL: This is a well-nourished, well-developed female, in distress due to the pain in her right shoulder, not in respiratory distress. SKIN: Warm and dry. No generalized rash ecchymosis, or embolic lesions. HEAD: Atraumatic. Normocephalic. No temporal or scalp tenderness. EYES: [place] conjunctivae, no petechia or hemorrhage. Pupils equal round and reactive. Extraocular motions intact. No scleral icterus. No injection or drainage. ENT: Nose without bleeding, or purulent drainage. Moist oral mucosa. Throat without erythema, or exudate. Uvula midline. Airway patent. NECK: Trachea midline. No JVD or lymphadenopathy. Supple, nontender, no meningeal signs. CARDIOVASCULAR: Regular rate and rhythm without murmurs, gallops, or rubs. RESPIRATORY: Clear to auscultation. Breath sounds equal bilaterally. No wheezes , rales, or rhonchi. GASTROINTESTINAL: Abdomen mildly distended, bowel sounds are present and normoactive. No tenderness. No guarding or rebound. No hepato-splenomegaly, or palpable masses. MUSCULOSKELETAL: Pete lower extremities without clubbing, cyanosis, or edema. No joint tenderness, or effusion, or edema noted. No calf tenderness. LUE is unremarkable. RUE - in surgical dressing. NEUROLOGICAL: Awake and alert. Cranial nerves II through XII intact. Motor and sensory grossly within normal limits. Normal speech. PSYCH: very anxious, but cooperative LINE: PIV with no evidence of infection Assessment & Plan Remarks Sepsis present on admission Grp A strep bacteremia Right shoulder myositis/abscess Right clavicle possible osteomyelitis IVDA Recs: Follow repeat blood cultures. Follow Intra-Op cultures. Follow Hepatitis profile Follow HIV antibody screen Orthopedic recommendations and help appreciated. Will regino Chirinos about CT C/A/P to work up for dissemination/seeding of other vital organs. Patient had 2 imaging ok to wait for now as clinically ok. Continue Vanco IV (target 15-20) for bacteremia. Would consider Ceftriaxone desensitization or challenge next week depending on susceptibilities. Jean Chirinos. to resume care in guero.Jeanie Mane MD Jul 31, 2016 18:07
--- NOTE | 2016-07-31 20:05 | MP ---
cc: AGUEDA BRIAN M.D. DATE OF SURGERY: 07/31/2016. PREOPERATIVE DIAGNOSIS: Right shoulder deep abscess infection, osteomyelitis. POSTOPERATIVE DIAGNOSIS: Right shoulder deep abscess infection, osteomyelitis. OPERATIVE PROCEDURE PERFORMED: Irrigation and debridement, right shoulder. SURGEON: Dr. Agueda Brian. FUNDRAISING COORDINATOR: Janneth Le ANESTHESIA: General. ESTIMATED BLOOD LOSS: 100 cc. COMPLICATIONS: None. JUSTIFICATION FOR THE PROCEDURE: This patient is a 40-year-old female with history of IV drug abuse. She developed severe abscess of the right shoulder in the region of the deltoid. She also has evidence of osteomyelitis of the distal clavicle and acromion and likely has septic arthritis, which progressed. She was counselled as to the risks, benefits and alternatives to the above-named proposed surgical procedure and did wish to proceed with surgery. DESCRIPTION OF THE PROCEDURE IN DETAIL: A written consent was obtained. The patient WAS identified by name AND taken to the operating room and placed supine on the operating room table. General anesthesia was administered. She has been on IV vancomycin. The patient was carefully placed in a beach-chair position. All bony prominences and pressure points were well padded. The right shoulder was prepped and draped using isopropyl alcohol, Hibiclens solution and Chloraprep solution. After an appropriate time-out was performed, a longitudinal incision was made over the anterior aspect of the right shoulder. Dissection was carried over the superior aspect of the acromioclavicular joint and posteriorly. There was evidence of a large abscess and purulence noted within the deltoid, trapezius and soft tissues. This was evacuated and debrided with a 10 blade scalpel as was well as the pulse lavage hospital chief executive officer and debrider. There was evidence of infection in the region of the acromioclavicular joint. A rongeur was used to remove the region of the distal clavicle and also acromion that appeared infected. The surgical wound was again thoroughly irrigated with sterile saline and pulse lavage antibiotic- impregnated solution. After a thorough debridement, the incision was closed with #3-0 nylon suture. Sterile dressings were applied. The patient tolerated the procedure well and no intraoperative complications were noted. NOTE Marcio Ac, physician veterinary technician assistant certified, was present during the entire procedure to include patient positioning and the procedure itself. The medical necessity of a physician veterinary technician assistant was indicated in this case due to the complexity of the procedure. He assisted with appropriate manipulation of the arm and also retraction of muscle, tendon and bone. He also assisted with the debridement and also closure. MD GOOD Loco/MIRIAM /11:10 AM /7:59 PM
[2016-07-31] MEDS: SODIUM CHLORIDE 0.9% FLUSH 5 ML FLUSH IVF SCH (21:00)
[2016-07-31] MEDS: DOCUSATE SODIUM 50 MG/SENNA 8.6 MG TAB PO SCH (21:24)
[2016-08-01] VITALS (7 sets, daily range): BP systolic 125–187; BP diastolic 64–107; PULSE 81–93; RESP 18–20; TEMP 96.3–98.1; O2SAT 97–100
[2016-08-01] MEDS: SODIUM CHLOR 0.9% 1000 ML INJ 1,000 ML IV SCH ×2 (02:00→12:00)
[2016-08-01] MEDS ORDERED: PHARMACY ORDERED LAB XX ONE ×2 (04:45→16:45)
[2016-08-01 04:52] LABS: HEMATOCRIT 30.5 % (35.0-46.0); MEAN CELL VOLUME 89.4 FL (80.0-100.0); MEAN CORPUSCULAR HEMOGLOBIN 30.7 PG (27.0-34.0); MEAN CORPUSCULAR HGB CONC 34.4 % (32.0-36.0); PLATELET COUNT 253 TH/MM3 (150-450); RED BLOOD COUNT 3.41 MIL/MM3 (4.00-5.30); REVIEW FLAG FINAL; WHITE BLOOD COUNT 11.8 TH/MM3 (4.0-11.0)
[2016-08-01] MEDS: VANCOMYCIN 1,000 MG/NS 250 ML IV SCH ×2 (04:56)
[2016-08-01] MEDS: ACETAMINOPHEN/HYDROcodone 325 MG/7.5 MG TAB PO PRN ×2 (04:57→19:56)
[2016-08-01 05:21] LABS: BICARBONATE 29.6 MEQ/L (21.0-32.0); POTASSIUM 3.6 MEQ/L (3.5-5.1)
[2016-08-01 05:23] LABS: VANCOMYCIN TROUGH 2.3 MCG/ML (5.0-10.0)
[2016-08-01] MEDS: LACTATED RINGER'S 1000 ML IV SCH (05:45)
[2016-08-01] MEDS: PCA - TOTAL MG MORPHINE DELIVERED PER SHIFT SCH (07:52)
[2016-08-01] MEDS: FAMOTIDINE 20 MG TAB PO SCH ×2 (08:21→19:56)
[2016-08-01] MEDS: SODIUM CHLORIDE 0.9% FLUSH 5 ML FLUSH IVF SCH ×2 (08:21→19:58)
[2016-08-01] MEDS: oxyCODONE/ACETAMINOPHEN 5 MG/325 MG TAB PO PRN ×3 (08:21→23:25)
[2016-08-01] MEDS: MULTIVITAMINS/MINERALS THERAPEUTIC TAB PO SCH (08:21)
[2016-08-01] MEDS: DOCUSATE SODIUM 50 MG/SENNA 8.6 MG TAB PO SCH ×2 (08:21→19:56)
[2016-08-01] MEDS: DEXT 5%-NACL 0.45% 1000 ML INJ 1,000 ML IV SCH ×2 (08:23→17:12)
--- NOTE | 2016-08-01 09:19 | HHI.PR ---
Subjective Remarks patient awake and alert pain better Irrigation and debridement 07/31- with large abscess and purulence obtained Objective Vitals Vital Signs Date Time Temp Pulse Resp B/P Pulse Ox O2 Delivery O2 Flow Rate FiO2 08/01/16 09:02 98 Nasal Cannula 21 08/01/16 07:52 18 08/01/16 04:00 96.3 84 20 187/83 100 08/01/16 00:00 97.1 88 20 144/70 98 07/31/16 21:34 20 07/31/16 20:00 97.0 87 20 143/77 98 07/31/16 16:11 96.5 90 20 140/73 98 07/31/16 16:06 99 21 07/31/16 12:21 15 07/31/16 12:00 97.8 80 20 133/77 98 07/31/16 11:55 97.7 71 15 150/97 99 Nasal Cannula 3 07/31/16 11:45 78 15 149/99 99 Nasal Cannula 3 07/31/16 11:30 73 14 159/99 99 Nasal Cannula 3 07/31/16 11:19 97.2 85 14 152/90 99 Nasal Cannula 3 I/O 07/31/16 07/31/16 07/31/16 08/01/16 08/01/16 08/01/16 07:00 15:00 23:00 07:00 15:00 23:00 Intake Total 1000 ml 360 ml 1451 ml Output Total 50 ml Balance 950 ml 360 ml 1451 ml Intake Oral 360 ml IV Total 300 ml 1451 ml Other 700 ml Output Urine Total 0 ml Estimated Blood Loss 50 ml # Voids 2 0 # Bowel Movements 0 Result Diagram: 08/01/16 0439 08/01/16 0439 Imaging Last Impressions Shoulder MRI 07/30/16 0000 Signed Impressions: Service Date/Time: Saturday, July 30, 2016 13:05 - CONCLUSION: Osteomyelitis of the distal 3 cm of the clavicle. There is very focal involvement in the subchondral region of the acromion. There is an irregular abscess in the overlying soft tissues, primarily in trapezius but focally involving deltoid and the overlying subcutaneous fat. The abscess is irregular but estimated at approximately 6.9 x 7.1 x 2.6 cm. The most superficial portion of the fluid collection is about 7 mm beneath the skin. Bob Nieto MD Chest X-Ray 07/28/16 1513 Signed Impressions: Service Date/Time: July 16:21 - CONCLUSION: No acute cardiopulmonary process. Joe Hodges MD Upper Extremity CT 07/28/16 0000 Signed Impressions: Service Date/Time: July 19:39 - CONCLUSION: No acute bony abnormality. Bob Alford MD Shoulder X-Ray 07/28/16 0000 Signed Impressions: Service Date/Time: July 16:16 - CONCLUSION: No acute osseous injury or significant degenerative changes. Joe Hodges MD Objective Remarks awake and alert, oriented x 3 anicteric no nuchal rigidity right shoulder - + erythema,tender to touch, + fluctuance, limited ROM, sutures in placefrom shoulder down to deltoid lungs clear regular rhythm abdomen soft, nontender right knee- erythema resolved, good range of motion right second toe erythema swelling and erythema resolved Procedures 07/31- Irrigation and debridement of right shoulder abscess A/P Assessment and Plan 40-year-old female presenting with Gram A beta strep Sepsis secondary to Septic right shoulder/ joint abscess, OM left distal clavicle S/P I and D 07/31 Follow CBC. ff final Blood C and S and wound cultures Appreciate ID recommendations- on Vancomycin OT consult- prevent frozen shoulder- recommendation on ADLs- brushing teeth, comb hair etc History of IV drug use Percocet when necessary for pain every 4 Discussed with her will not give any IV pain meds HYponatremia- resolved ff lytes. TSH mildly elevated. recheck in 6-8 weeks History of hypertension monitor BPs Zantac for GI prophylaxis patient up and ambulating Kermit Villasenor MD Aug 01, 2016 09:19
--- NOTE | 2016-08-01 11:59 | PD.ORT.PN ---
Subjective Post Op Day #: 1 Subjective Remarks pain much improved Objective Vitals Vital Signs Date Time Temp Pulse Resp B/P Pulse Ox O2 Delivery O2 Flow Rate FiO2 08/01/16 09:02 98 Nasal Cannula 21 08/01/16 07:52 18 08/01/16 07:12 97.0 91 19 172/76 97 08/01/16 04:00 96.3 84 20 187/83 100 08/01/16 00:00 97.1 88 20 144/70 98 07/31/16 21:34 20 07/31/16 20:00 97.0 87 20 143/77 98 07/31/16 16:11 96.5 90 20 140/73 98 07/31/16 16:06 99 21 07/31/16 12:21 15 07/31/16 12:00 97.8 80 20 133/77 98 I/O 07/31/16 07/31/16 07/31/16 08/01/16 08/01/16 08/01/16 07:00 15:00 23:00 07:00 15:00 23:00 Intake Total 1000 ml 360 ml 1451 ml Output Total 50 ml Balance 950 ml 360 ml 1451 ml Intake Oral 360 ml IV Total 300 ml 1451 ml Other 700 ml Output Urine Total 0 ml Estimated Blood Loss 50 ml # Voids 2 0 # Bowel Movements 0 Result Diagram: 08/01/169 08/01/169 Objective Remarks in bed, nad dressing c/d/i non-tender nvi sensation intact Assessment & Plan Ortho Post Op Day #: 1 Problem List: Assessment and Plan s/p I&D R septic shoulder with distal clavicle excision ROM as tolerated daily dressing changes ortho stable f/up dr. fraga 2 weeks Mehdi Ac Aug 01, 2016 11:59
[2016-08-01] MEDS ORDERED: cefTRIAXone INJ 2,000 MG in SODIUM CHLORIDE 0.9% INJ 100 ML IV SCH (14:00)
--- NOTE | 2016-08-01 15:22 | HHI.IDPN ---
Subjective Subjective Remarks Notes reviewed had surgery on her R shoulder Abscess found on shoulder, plus AC joint infection and osteo of the clavicle BC with GAS Fup BC negative so far Echo ok Pain better Antibiotics Vanco IV Lines Line sites with no e/o infection. Past Medical History IVDA Allergies: Coded Allergies: Penicillin (Verified Allergy, Mild, Rash, 08/01/16) Patient has taken ampicillin and amoxicillin without any problem *MDRO Multi-Drug Resistant Organism (Verified Adverse Reaction, Unknown, 04/20/16) MRSA PCR screen POSITIVE - 04/19/16 Objective . Vital Signs Date Time Temp Pulse Resp B/P Pulse Ox O2 Delivery O2 Flow Rate FiO2 08/01/16 11:40 96.7 81 19 171/82 99 08/01/16 09:02 98 Nasal Cannula 21 08/01/16 07:52 18 08/01/16 07:12 97.0 91 19 172/76 97 08/01/16 04:00 96.3 84 20 187/83 100 08/01/16 00:00 97.1 88 20 144/70 98 07/31/16 21:34 20 07/31/16 20:00 97.0 87 20 143/77 98 07/31/16 16:11 96.5 90 20 140/73 98 07/31/16 16:06 99 21 07/31/16 07/31/16 08/01/16 15:00 23:00 07:00 Intake Total 1000 ml 360 ml 1451 ml Output Total 50 ml Balance 950 ml 360 ml 1451 ml Intake Oral 360 ml IV Total 300 ml 1451 ml Other 700 ml Output Urine Total 0 ml Estimated Blood Loss 50 ml # Voids 0 . Laboratory Tests Test 08/01/16 04:39 White Blood Count 11.8 TH/MM3 Red Blood Count 3.41 MIL/MM3 Hemoglobin 10.5 GM/DL Hematocrit 30.5 % Mean Corpuscular Volume 89.4 FL Mean Corpuscular Hemoglobin 30.7 PG Mean Corpuscular Hemoglobin 34.4 % Concent Red Cell Distribution Width 15.0 % Platelet Count 253 TH/MM3 Mean Platelet Volume 8.9 FL Laboratory Tests Test 08/01/16 04:39 Sodium Level 141 MEQ/L Potassium Level 3.6 MEQ/L Chloride Level 103 MEQ/L Carbon Dioxide Level 29.6 MEQ/L Anion Gap 8 MEQ/L Blood Urea Nitrogen 9 MG/DL Creatinine 0.71 MG/DL Estimat Glomerular Filtration 92 ML/MIN Rate Random Glucose 180 MG/DL Calcium Level 8.2 MG/DL Microbiology Date/Time Procedure Status Source Growth 07/30/16 15:31 Aerobic Blood Culture - Preliminary Resulted Blood Peripheral NO GROWTH IN 2 DAYS 07/30/16 15:31 Anaerobic Blood Culture - Final Resulted Blood Peripheral ONLY AEROBIC CULTURE ORDERED 07/30/16 15:39 Aerobic Blood Culture - Preliminary Resulted Blood Peripheral NO GROWTH IN 2 DAYS 07/30/16 15:39 Anaerobic Blood Culture - Preliminary Resulted Blood Peripheral NO GROWTH IN 2 DAYS 07/31/16 10:56 Gram Stain - Final Resulted Wound Shoulder 07/31/16 10:56 Wound Culture - Preliminary Resulted Gram Positive Cocci 07/31/16 10:56 Acid Fast Stain Received Wound Shoulder Pending 07/31/16 10:56 Mycobacterial Culture Received Wound Shoulder Pending 07/31/16 10:56 Fungal Smear - Final Resulted Wound Shoulder NO FUNGAL ELEMENTS SEEN. 07/31/16 10:56 Fungal Culture Resulted Wound Shoulder Pending Imaging Last Impressions Shoulder MRI 07/30/16 0000 Signed Impressions: Service Date/Time: Saturday, July 30, 2016 13:05 - CONCLUSION: Osteomyelitis of the distal 3 cm of the clavicle. There is very focal involvement in the subchondral region of the acromion. There is an irregular abscess in the overlying soft tissues, primarily in trapezius but focally involving deltoid and the overlying subcutaneous fat. The abscess is irregular but estimated at approximately 6.9 x 7.1 x 2.6 cm. The most superficial portion of the fluid collection is about 7 mm beneath the skin. Bob Nieto MD Chest X-Ray 07/28/16 1513 Signed Impressions: Service Date/Time: July 16:21 - CONCLUSION: No acute cardiopulmonary process. Joe Hodges MD Upper Extremity CT 07/28/16 0000 Signed Impressions: Service Date/Time: July 19:39 - CONCLUSION: No acute bony abnormality. Bob Alford MD Shoulder X-Ray 07/28/16 0000 Signed Impressions: Service Date/Time: July 16:16 - CONCLUSION: No acute osseous injury or significant degenerative changes. Joe Hodges MD Physical Exam GENERAL: Awake, and alert, NAD SKIN: Warm and dry. No generalized rash ecchymosis, or embolic lesions. HEENT: [place] conjunctivae, no petechia or hemorrhage. No scleral icterus. Moist oral mucosa. NECK: Trachea midline. No JVD or lymphadenopathy. Supple, nontender, no meningeal signs. CARDIOVASCULAR: Regular rate and rhythm without murmurs, gallops, or rubs. RESPIRATORY: Clear to auscultation. Breath sounds equal bilaterally. No wheezes , rales, or rhonchi. GASTROINTESTINAL: Abdomen mildly distended, bowel sounds are present and normoactive. No tenderness. No guarding or rebound. No hepato-splenomegaly, or palpable masses. MUSCULOSKELETAL: [place] lower extremities without clubbing, cyanosis, or edema. No joint tenderness, or effusion, or edema noted. No calf tenderness. LUE is unremarkable. RUE - dry incision, area of redness better, still very tender NEUROLOGICAL: Non-focal PSYCH: Calm and cooperative LINE: PIV with no evidence of infection Assessment & Plan Remarks Sepsis present on admission Grp A strep sepsis Right shoulder myositis/abscess Right clavicle possible osteomyelitis IVDA Hep C (+) PLAN: Follow repeat blood cultures. Follow Intra-Op cultures. Change Abx to Rocephin - she has taken Ampicillin and Amoxicillin without any problem Will determine course of Rx once work-up completed Shirley Leon MD Aug 01, 2016 15:22
[2016-08-02] VITALS: BP 161/88; PULSE 76; RESP 20; TEMP 98.9; O2SAT 97
[2016-08-02] MEDS: DEXT 5%-NACL 0.45% 1000 ML INJ 1,000 ML IV SCH (03:12)
[2016-08-02] MEDS: ACETAMINOPHEN/HYDROcodone 325 MG/7.5 MG TAB PO PRN (04:08)
[2016-08-02 04:54] VITALS: BP 180/111; PULSE 87; RESP 20; TEMP 98; O2SAT 99
[2016-08-02] MEDS: oxyCODONE/ACETAMINOPHEN 5 MG/325 MG TAB PO PRN (06:16)
[2016-08-02 07:56] LABS: HEMATOCRIT 33.7 % (35.0-46.0); MEAN CELL VOLUME 89.1 FL (80.0-100.0); MEAN CORPUSCULAR HEMOGLOBIN 30.9 PG (27.0-34.0); MEAN CORPUSCULAR HGB CONC 34.7 % (32.0-36.0); PLATELET COUNT 277 TH/MM3 (150-450); RED BLOOD COUNT 3.79 MIL/MM3 (4.00-5.30); RED CELL DISTRIBUTION WIDTH 14.6 % (11.6-17.2); REVIEW FLAG FINAL; WHITE BLOOD COUNT 9.1 TH/MM3 (4.0-11.0)
[2016-08-02 08:00] VITALS: BP 166/99; PULSE 84; RESP 16; TEMP 96.8; O2SAT 97
[2016-08-02 08:14] LABS: BICARBONATE 32.1 MEQ/L (21.0-32.0); POTASSIUM 3.6 MEQ/L (3.5-5.1)
[2016-08-02] MEDS: MULTIVITAMINS/MINERALS THERAPEUTIC TAB PO SCH (08:17)
[2016-08-02] MEDS: FAMOTIDINE 20 MG TAB PO SCH (08:17)
--- NOTE | 2016-08-02 08:45 | PD.ORT.PN ---
Subjective Post Op Day #: 2 Subjective Remarks pain much improved Objective Vitals Vital Signs Date Time Temp Pulse Resp B/P Pulse Ox O2 Delivery O2 Flow Rate FiO2 08/02/16 08:00 96.8 84 16 166/99 97 08/02/16 04:54 98.0 87 20 180/111 99 08/02/16 00:00 98.9 76 20 161/88 97 08/01/16 20:00 98.1 89 20 175/107 98 08/01/16 20:00 98.1 89 20 175/107 97 08/01/16 15:15 97.2 84 19 179/86 98 08/01/16 11:40 96.7 81 19 171/82 99 08/01/16 09:02 98 Nasal Cannula 21 I/O 08/01/16 08/01/16 08/01/16 08/02/16 08/02/16 08/02/16 07:00 15:00 23:00 07:00 15:00 23:00 Intake Total 1451 ml Balance 1451 ml IV Total 1451 ml # Voids 4 8 # Bowel Movements 0 Result Diagram: 08/02/16 0725 08/02/16 0723 Objective Remarks in bed, nad dressing c/d/i non-tender nvi sensation intact Assessment & Plan Ortho Post Op Day #: 2 Problem List: Assessment and Plan s/p I&D R septic shoulder with distal clavicle excision ROM as tolerated daily dressing changes ortho stable - cleared by ortho for d/c once abx arranged f/up dr. fraga 2 weeks Mehdi Ac Aug 02, 2016 08:45
[2016-08-02] MEDS: SODIUM CHLORIDE 0.9% FLUSH 5 ML FLUSH IVF SCH (09:00)
[2016-08-02] MEDS: DOCUSATE SODIUM 50 MG/SENNA 8.6 MG TAB PO SCH (09:00)
--- NOTE | 2016-08-02 09:46 | HHI.PR ---
Subjective Remarks patient wanting to leave- states she has pets at home afebrile i explained to her that she may need to stay and complete course of antibiotics - with findings of osteomyelitis and sepsis and i will d/w ID specialist Objective Vitals Vital Signs Date Time Temp Pulse Resp B/P Pulse Ox O2 Delivery O2 Flow Rate FiO2 08/02/16 08:00 96.8 84 16 166/99 97 08/02/16 04:54 98.0 87 20 180/111 99 08/02/16 00:00 98.9 76 20 161/88 97 08/01/16 20:00 98.1 89 20 175/107 98 08/01/16 20:00 98.1 89 20 175/107 97 08/01/16 15:15 97.2 84 19 179/86 98 08/01/16 11:40 96.7 81 19 171/82 99 I/O 08/01/16 08/01/16 08/01/16 08/02/16 08/02/16 08/02/16 07:00 15:00 23:00 07:00 15:00 23:00 Intake Total 1451 ml Balance 1451 ml IV Total 1451 ml # Voids 4 8 # Bowel Movements 0 Result Diagram: 08/02/16 0725 08/02/16 0723 Imaging Last Impressions Shoulder MRI 07/30/16 0000 Signed Impressions: Service Date/Time: Saturday, July 30, 2016 13:05 - CONCLUSION: Osteomyelitis of the distal 3 cm of the clavicle. There is very focal involvement in the subchondral region of the acromion. There is an irregular abscess in the overlying soft tissues, primarily in trapezius but focally involving deltoid and the overlying subcutaneous fat. The abscess is irregular but estimated at approximately 6.9 x 7.1 x 2.6 cm. The most superficial portion of the fluid collection is about 7 mm beneath the skin. Bob Nieto MD Chest X-Ray 07/28/16 1513 Signed Impressions: Service Date/Time: July 16:21 - CONCLUSION: No acute cardiopulmonary process. Joe Hodges MD Upper Extremity CT 07/28/16 0000 Signed Impressions: Service Date/Time: July 19:39 - CONCLUSION: No acute bony abnormality. Bob Alford MD Shoulder X-Ray 07/28/16 0000 Signed Impressions: Service Date/Time: July 16:16 - CONCLUSION: No acute osseous injury or significant degenerative changes. Joe Hodges MD Objective Remarks awake and alert, oriented x 3 anicteric, tearful no nuchal rigidity right shoulder - + erythema,tender to touch, + fluctuance, limited ROM, sutures in place from shoulder down to deltoid lungs clear regular rhythm abdomen soft, nontender LE- no erythema, good range of motion Procedures 07/31- Irrigation and debridement of right shoulder abscess A/P Assessment and Plan 40-year-old female presenting with Gram A beta strep Sepsis secondary to Septic right shoulder/ joint abscess, OM left distal clavicle S/P I and D 07/31 On Ceftriaxone OT consult- prevent frozen shoulder- recommendation on ADLs- brushing teeth, comb hair etc History of IV drug use Percocet when necessary for pain every 4 Discussed with her will not give any IV pain meds HYponatremia- resolved ff lytes. TSH mildly elevated. recheck in 6-8 weeks History of hypertension- elevated readings- patient emotional will start patient on CCB. clondiine prn monitor BPs Zantac for GI prophylaxis patient up and ambulating patient wanting to be leave discussed with her need to complete antibiotics due to sepsis- I tole her I will discuss with ID duration of antibiotics Kermit Villasenor MD Aug 02, 2016 09:46
[2016-08-02] MEDS ORDERED: cloNIDine HCL 0.1 MG TAB PO PRN (10:00)
[2016-08-02] MEDS ORDERED: NIFEdipine 30 MG SUSTAINED RELEASE TAB PO SCH (11:00)
--- NOTE | 2016-10-25 15:00 | HHI.DS ---
Discharge Summary Admission Date Jul 28, 2016 at 17:07 Discharge Date: Aug 02, 2016 Admitting Diagnosis sepsis, right shoulder pain (1) Right shoulder pain ICD Code: M25.511 Diagnosis: Principal (2) Sepsis ICD Code: A41.9 Diagnosis: Principal Procedures 07/31- Irrigation and debridement of right shoulder abscess Brief History - From Admission Patient is a very pleasant 40-year-old female who admits to active IV drug heroine plus cocaine who states that he did his last IV injection about 4 weeks ago. 3 days ago started having right shoulder pain constant associated with fever of 101.9 MAXIMUM with chills. Patient self medicated with Tylenol with no improvement. This morning woke up unable to move her right joint shoulder joint which prompted patient to call EMS Temperature here in the ER was 100.9 white count of 22,000 . Patient complains of generalized aches and pains, very emotional and hysterical. Patient admitted for further evaluation and management Patient denies any history of previous MRSA infections, endocarditis or sepsis LMP 6 months ago - irregular cycles states history of hypertension but can't afford meds Imaging Last Impressions Shoulder MRI 07/30/16 0000 Signed Impressions: Service Date/Time: Saturday, July 30, 2016 13:05 - CONCLUSION: Osteomyelitis of the distal 3 cm of the clavicle. There is very focal involvement in the subchondral region of the acromion. There is an irregular abscess in the overlying soft tissues, primarily in trapezius but focally involving deltoid and the overlying subcutaneous fat. The abscess is irregular but estimated at approximately 6.9 x 7.1 x 2.6 cm. The most superficial portion of the fluid collection is about 7 mm beneath the skin. Bob Nieto MD Chest X-Ray 07/28/16 1513 Signed Impressions: Service Date/Time: July 16:21 - CONCLUSION: No acute cardiopulmonary process. Joe Hodges MD Upper Extremity CT 07/28/16 0000 Signed Impressions: Service Date/Time: July 19:39 - CONCLUSION: No acute bony abnormality. Bob Alford MD Shoulder X-Ray 07/28/16 0000 Signed Impressions: Service Date/Time: July 16:16 - CONCLUSION: No acute osseous injury or significant degenerative changes. Joe Hodges MD PE at Discharge awake and alert, oriented x 3 anicteric, tearful no nuchal rigidity right shoulder - + erythema,tender to touch, + fluctuance, limited ROM, sutures in place from shoulder down to deltoid lungs clear regular rhythm abdomen soft, nontender LE- no erythema, good range of motion Hospital Course 40-year-old female presenting with Gram A beta strep Sepsis secondary to Septic right shoulder/ joint abscess, OM left distal clavicle S/P I and D 07/31 On Ceftriaxone OT consult- prevent frozen shoulder- recommendation on ADLs- brushing teeth, comb hair etc History of IV drug use Percocet when necessary for pain every 4 Discussed with her will not give any IV pain meds HYponatremia- resolved ff lytes. TSH mildly elevated. recheck in 6-8 weeks History of hypertension- elevated readings- patient emotional will start patient on CCB. clondiine prn monitor BPs Zantac for GI prophylaxis patient up and ambulating patient wanting to leave AMA discussed with her need to complete antibiotics due to sepsis- I tole her I will discuss with ID duration of antibiotics Pt Condition on Discharge: Guarded Discharge Disposition: Discharge Home (AMA) Discharge Time: > 30 minutes Kermit Villasenor MD October 25, 2016 15:00
== END 2016-08-02 10:30 | disposition left against medical advice (07) | DRG 854 ==
LOC: NEPC 10:50 → MERGE 17:07 → NEDA 17:07 → NEDH 21:14 → N05B 07-29 12:16
PROVIDERS: ADMIT Internal Medicine; ATTEND Internal Medicine
PROC: 0J9D0ZZ Drainage of Right Upper Arm Subcutaneous Tissue and Fascia, Open Approach (ICD-10-PCS; principal; 2016-07-31 10:25)
DX: A40.9 Streptococcal sepsis, unspecified (principal); M86.8X1 Other osteomyelitis, shoulder; I38 Endocarditis, valve unspecified; M00.9 Pyogenic arthritis, unspecified; E87.1 Hypo-osmolality and hyponatremia; L02.413 Cutaneous abscess of right upper limb; L03.113 Cellulitis of right upper limb; N39.0 Urinary tract infection, site not specified; I10 Essential (primary) hypertension; B19.20 Unspecified viral hepatitis C without hepatic coma; L03.031 Cellulitis of right toe; M60.9 Myositis, unspecified; Z16.24 Resistance to multiple antibiotics; F17.210 Nicotine dependence, cigarettes, uncomplicated; F19.10 Other psychoactive substance abuse, uncomplicated
CPT/HCPCS: 71010; 73030; 73201; 73223; 76937; 80048; 80053; 80074; 80202; 80307; 81001; 83605; 84443; 84702; 85025; 85027; 85610; 85652; 85730; 86140; 86403; 86703; 87015; 87040; 87070; 87086; 87102; 87116; 87186; 87205; 87206; 93005; 93306; 94150; 96365; 96375; A9579; C9113; J0131; J0690; J0696; J1170; J1580; J1885; J1956; J2175; J2270; J2370; J2405; J2710; J3010; J3370; J7030; J7050; Q9967

== ENCOUNTER 2017-11-13 16:05 | Emergency (ER) | payer SELFPAY ==
[~2017-11-13] VITALS: Ht 154.9 cm; Wt 60.0 kg
--- NOTE | 2017-11-13 17:53 | PD ---
HPI Chief Complaint: OD/ Ingestion Time Seen by Provider: 17:25 Travel History International Travel<30 days: No Contact w/Intl Traveler<30days: No Traveled to known affect area: No History of Present Illness HPI 42-year-old female presents to the emergency department via EMS. Apparently the patient went unresponsive that bystanders saw and when EMS arrived she was awake, alert and had GCS of 15. According to the triage note EMS did not give any medications to the patient. The patient is a heroin user and admits to injecting heroin today. She is awake, alert and easily arousable in the room. She is oriented. She denies suicidal or homicidal ideations. Denies auditory visual hallucinations. She denies chest pain, shortness of breath, abdominal pain, nausea, vomiting, change in urine or stool. She has no medical complaints at this time. Onset unknown. Duration unknown. Symptoms are aggravated by injection of heroin. No known relieving factors. Allergies to penicillin. Denies significant past medical history. No primary care provider. No other modifying factors or associated signs and symptoms. PFSH Past Medical History ADHD: Yes Autoimmune Disease: No Blood Disorders: No Bipolar Disorder: Yes Anxiety: Yes Depression: Yes Cancer: No Cardiovascular Problems: No Diabetes: No Diminished Hearing: No Endocrine: No Genitourinary: No Hypertension: Yes Immune Disorder: No Musculoskeletal: No Neurologic: No Psychiatric: No Reproductive: No Respiratory: No Immunizations Current: No Seizures: Yes (2 YRS AGO LAST ONE) Thyroid Disease: No Menopausal: No : 3 Para: 3 Past Surgical History Abdominal Surgery: No AICD: No Arteriovenous Shunt: No Cardiac Surgery: No Section: Yes Ear Surgery: No Endocrine Surgery: No Eye Surgery: No Genitourinary Surgery: No Gynecologic Surgery: Yes () Insulin Pump: No Joint Replacement: No Oral Surgery: No Pacemaker: No Thoracic Surgery: No Social History Alcohol Use: Yes (EVERY OTHER DAY ) Tobacco Use: Yes Substance Use: Yes (PAST HEROIN IV) Allergies-Medications (Allergen,Severity, Reaction): Coded Allergies: penicillin G (Unverified Allergy, Severe, Anaphylaxis, 11/13/17) *MDRO Multi-Drug Resistant Organism (Verified Adverse Reaction, Unknown, ) MRSA PCR screen POSITIVE - 04/19/16 Reported Meds & Prescriptions Reported Meds & Active Scripts Active No Active Prescriptions or Reported Medications Review of Systems Except as stated in HPI: all other systems reviewed are Neg Physical Exam Narrative GENERAL: Well-nourished, well-developed feet patient, in no acute distress SKIN: Warm and dry. Multiple track adorno noted to bilateral upper extremities; no signs of infection or cellulitis noted. HEAD: Atraumatic. Normocephalic. EYES: Pupils equal and round. ENT: Mucosa pink and moist. NECK: Supple. Trachea midline. CARDIOVASCULAR: Regular rate and rhythm. No murmur appreciated. RESPIRATORY: No accessory muscle use. Clear to auscultation. Breath sounds equal bilaterally. GASTROINTESTINAL: Abdomen soft, non-tender, nondistended. Hepatic and splenic margins not palpable. Bowel sounds are active 4 quadrants. MUSCULOSKELETAL: No obvious deformities. No clubbing. No cyanosis. No edema. BACK: No CVA tenderness. NEUROLOGICAL: Sleeping when I walked into the room, but easily arousable with verbal stimuli. Awake and alert. Oriented 3. No obvious cranial nerve deficits. Motor grossly within normal limits. Normal speech. Moves all extremities. 5/5 strength to all extremities. PSYCHIATRIC: No delusional thought processes. No hallucinations. Data Data Last Documented VS Vital Signs Date Time Temp Pulse Resp B/P (MAP) Pulse Ox O2 Delivery O2 Flow Rate FiO2 11/13/17 18:30 83 12 98 Room Air MDM Medical Decision Making Medical Screen Exam Complete: Yes Emergency Medical Condition: Yes Medical Record Reviewed: Yes Differential Diagnosis Heroin abuse, heroin overdose, intoxication, medical clearance Narrative Course 42-year-old female presents after injecting heroin and apparently went unresponsive that was stated by bystanders. EMS arrived and stated the patient was awake, alert, and GCS of 15 on scene. The patient is sleeping in the room and she arouses easily with verbal stimuli. He does admit to using heroin. The patient denies suicidal or homicidal ideations. She has no emergent medical complaints. I do not feel the patient is a threat to herself and others and cannot determine the need for care. She is asking if she can take a taxi home. She is able to ambulate and has a steady gait. I feel comfortable with the patient being escorted to a taxi when it arrives and going home. She provided me with the address she is going to and says it is safe. Dr. Coe would like the patient discharged with a prescription for Narcan. Narcan prescription provided for home. The patient will be discharged when the taxi arrives and walked to the taxi to ensure the patient makes it home safely. Instructed patient to follow up with primary care provider. Patient verbalizes understanding and agreement with treatment plan. Patient is medically cleared and stable for discharge. Discussed reasons to return to the emergency department. Patient agrees with treatment plan. The patients vital signs are stable and the patient is stable for outpatient follow-up and treatment. Patient discharged home, stable and in no acute distress. Diagnosis Primary Impression: Heroin abuse Referrals: [facility] (Out patient) [facility] Primary Care Physician Blair [facility] Patient Instructions: General Instructions, Opioid Dependence (ED) Additional Instructions: Contract safety to your self and others Stop using drugs Follow-up in the community for support, such as with Narcotics Anonymous Follow-up with primary care provider Follow-up with Sd Peacock/[facility] Return to the emergency department immediately with worsening of symptoms Med/Other Pt SpecificInfo: Prescription(s) given Scripts Naloxone Nasal Marion (Narcan Nasal Marion) 4 Mg/Act Marion 4 MG NASAL ONCE Y for OPIOID OVERDOSE, #1 SPRAY 0 Refills Contents of 1 nasal spray as a single dose; may repeat every 2 to 3 minutes in alternating nostrils until medical assistance becomes available. Prov: Rosalina Bowman 11/13/17 Disposition: 01 DISCHARGE HOME Condition: Stable Rosalina Bowman Nov 13, 2017 17:53
[2017-11-13 18:05] VITALS: BP 128/82; PULSE 84; RESP 12; O2SAT 94
[2017-11-13 18:30] VITALS: PULSE 83; RESP 12; O2SAT 98
[2017-11-13] MEDS ORDERED: NALO1SPR NASAL (18:58)
== END 2017-11-13 19:57 | disposition home or self-care (01) ==
LOC: NEPD 16:05
DX: F11.10 Opioid abuse, uncomplicated (principal); Z72.0 Tobacco use
CPT/HCPCS: 99283

== ENCOUNTER 2018-07-30 01:17 | Inpatient (IN) ==
[2018-07-30] MEDS ORDERED: predniSONE 20 MG Tablet PO ONE (02:00)
[2018-07-30] MEDS ORDERED: Acetaminophen 325 MG Tablet PO ONE (02:00)
--- NOTE | 2018-07-30 03:05 | XR ---
EXAM DATE: 07/30/2018 2:36 AM EST AGE/SEX: 42 years / Female INDICATIONS: Cough, shortness of breath. CLINICAL DATA: This is the patient's initial encounter. Patient reports that signs and symptoms have been present for 1 day and indicates a pain score of 0/10. MEDICAL/SURGICAL HISTORY: None. None. COMPARISON: [facility] – [place], CHEST SINGLE AP, 11/21/2014. . FINDINGS: A single AP view of the chest demonstrates the lungs to be symmetrically aerated with airspace diseas e medially in the right upper lobe. There also appears to be nodular-like density projecting laterall y over the scapula in the left upper lung. Heart size is normal. Widening of the right AC joint. Osse ous structures are otherwise intact. CONCLUSION: 1. Airspace process in the right upper lobe concerning for pneumonic infiltrate. 2. Additional rounded density laterally in the left upper lung could represent additional area of in filtration or mass lesion. Recommend follow-up chest radiograph after therapy to ensure resolution. I f the area persists, consider noncontrasted CT scan of the chest for further characterization. 3. Widening of the right AC joint with some bony fragmentation may represent posttraumatic changes. Electronically signed by: Joe Hodges MD Board Certified Radiologist 07/30/2018 3:04 AM EST
[2018-07-30] MEDS ORDERED: Azithromycin 250 MG Tablet PO ONE ×2 (03:13→03:21)
--- NOTE | 2018-07-30 03:21 | ED ---
HPI General Chief Complaint: Respiratory Symptoms Stated Complaint: Poss Fever Time Seen by Provider: 07/30/18 01:37 Source: patient Mode of arrival: ambulatory Limitations: no limitations History of Present Illness HPI Narrative: Sore throat cough congestion for over 1 week. Patient denies any history of lung disease. Patient does admit to smoking cigarettes daily and has a history of IV drug abuse. Patient states that she is only been using Suboxone recently. Patient is felt fevers and chills in the past 2 days along with intermittent chest pain with coughing MD Complaint: Reports fever and cough Duration: progressively worsening Severity: moderate Severity scale (1-10): 7 Relieving factors: nothing Exacerbating factors: nothing Related Data Home Medications Medication Instructions Recorded Confirmed No Known Home Medications 07/30/18 07/30/18 Allergies Allergy/AdvReac Type Severity Reaction Status Date / Time penicillin G Allergy Severe Anaphylaxis Verified 07/30/18 01:22 *MDRO Multi-Drug Resistant AdvReac Unknown unk Uncoded 07/30/18 01:22 Organism Review of Systems ROS: all other systems reviewed are negative [facility] Social History Social History Substance History: Active Abuse Second Hand Smoke Exposure: Yes Smoking Status: Heavy tobacco smoker Tobacco Type: Cigarettes How Often Do You Have a Drink Containing Alcohol: Never Recent Travel in [facility] within the Last 8 Weeks: No Recent Out of Country Travel within the Last 8 Weeks: No Substance Abuse Detail Heroin: Route Used Substance Abuse: Intravenously Immunization History Tetanus Immunization: >5 Years Exam [facility] [place] Head: normocephalic and atraumatic Nose: no nasal discharge and no epistaxis Mouth: moist mucous membranes Eyes Sclera: normal sclerae Pupils: PERRL Neck Neck: trachea midline and no JVD Resp Effort & Inspection: no use of accessory muscles Auscultation: clear to auscultation bilaterally Cardio Rate: regular rate Rhythm: regular rhythm Heart Sounds: no murmurs GI Inspection: non-distended Palpation: soft, no hepatosplenomegaly and nontender Skin General: dry skin (warm) Neuro General: alert and awake Cranial Nerves: other Speech: speech normal Motor: no movement abnormalities noted Extrem General: normal to inspection, no clubbing, no cyanosis and no edema Psych Mood: congruent mood Affect: normal affect Judgment: judgment good Course Initial Documented Vital Signs Temperature 97.2 F L 07/30/18 01:22 Pulse Rate 89 07/30/18 01:22 Respiratory Rate 15 07/30/18 01:22 Blood Pressure 112/60 07/30/18 01:22 Pulse Oximetry 99 07/30/18 01:22 Last Documented Vital Signs Temperature 97.2 F L 07/30/18 01:22 Pulse Rate 85 07/30/18 02:10 Respiratory Rate 18 07/30/18 02:10 Blood Pressure 112/60 07/30/18 01:22 Pulse Oximetry 99 07/30/18 01:22 Medical Decision Making MDM Narrative Medical decision making narrative: Sore throat cough congestion for over 1 week. Patient denies any history of lung disease. Patient does admit to smoking cigarettes daily and has a history of IV drug abuse. Patient states that she is only been using Suboxone recently. Patient is felt fevers and chills in the past 2 days Physical exam shows coarse breath sounds on auscultation. Patient has a productive wheezing type cough. Patient received p.o. prednisone and DuoNeb treatment chest x-ray and influenza swab After DuoNeb patient states that she feels better and her chest does not hurt as badly Chest x-ray shows a right upper lobe pneumonia On reexam patient is drenched in sweat and is pale. Patient states she feels much worse than she did when she first arrived. Lab work including CBC CMP blood cultures and lactic were ordered along with 1 L of normal saline Rocephin IV and p.o. dose of azithromycin Lab work shows a CBC of 16.5. Lactic is 2.4. Patient has a sodium of 131 and potassium of 3.1 Patient given 1 g of vancomycin Patient will be admitted to medicine for continued IV antibiotics and maturing patient's pneumonia Medical Screen Exam Complete: Yes Emergency Medical Condition: Yes Differential Diagnosis Differential Diagnosis: URI, bronchitis, pneumonia, influenza, sepsis, Lab Data Lab results reviewed: Yes I reviewed the patient's lab results. Lab results narrative: White blood cell count of 16.5 dehydration positive lactic acid Result diagrams: 07/30/18 03:30 07/30/18 03:30 Lab Results 07/30/18 07/30/18 07/30/18 Range/Units 03:30 03:30 03:30 WBC 16.5 H (4.0-11.0) th/mm3 RBC 3.60 L (4.00-5.30) mil/mm3 Hgb 10.6 L (11.6-15.3) gm/dL Hct 31.2 L (35.0-46.0) % MCV 86.8 (80.0-100.0) fL MCH 29.4 (27.0-34.0) pg MCHC 33.9 (32.0-36.0) % RDW 15.3 (11.6-17.2) % Plt Count 183 (150-450) th/mm3 MPV 7.9 (7.0-11.0) fL Prelim Diff (Auto) Manual diff required WBC Differential Manual diff final Seg Neuts % (Manual) 85 H (16-70) % Band Neuts % (Manual) 3 (0-6) % Lymphocytes % (Manual) 3 L (9-44) % Monocytes % (Manual) 5 (0-8) % Metamyelocytes % (Man) 1 (0-1) % Other Cells % 3 H (0-0) % Abs Neuts (Manual) 14.7 H (1.8-7.7) th/mm3 Differential Comment . Platelet Estimate Normal (Normal) Platelet Morphology Normal (Normal) Sodium 131 L (136-145) meq/L Potassium 3.1 L (3.5-5.1) meq/L Chloride 90 L (98-107) meq/L Carbon Dioxide 35.2 H (21.0-32.0) meq/L Anion Gap 6 (5-15) meq/L BUN 14 (7-18) mg/dL Creatinine 1.31 H (0.50-1.00) mg/dL Estimated GFR 45 L (>89) mL/min Random Glucose 151 H (74-106) mg/dL Lactic Acid 2.4 H (0.4-2.0) mmol/L Calcium 7.7 L (8.5-10.1) mg/dL Total Bilirubin 0.4 (0.2-1.0) mg/dL AST 33 (15-37) U/L ALT 13 (10-53) U/L Alkaline Phosphatase 146 H (45-117) U/L Total Protein 7.4 (6.4-8.2) g/dL Albumin 1.9 L (3.4-5.0) g/dL Imaging Data Attestation: I personally reviewed and interpreted this imaging study as follows : My impression: Right upper lobe pneumonia Radiologist's impression: Chest X-Ray 07/30/18 02:00 CONCLUSION: 1. Airspace process in the right upper lobe concerning for pneumonic infiltrate. 2. Additional rounded density laterally in the left upper lung could represent additional area of infiltration or mass lesion. Recommend follow-up chest radiograph after therapy to ensure resolution. If the area persists, consider noncontrasted CT scan of the chest for further characterization. 3. Widening of the right AC joint with some bony fragmentation may represent posttraumatic changes. Discharge Plan Discharge Disposition Patient Disposition: ED Admit(ED Internal Use Only) Discharge Condition Condition: Stable Discharge Order Discharge Orders: ED Use Only Admit Order (Routine); Ordered 07/30/18 Ordered By: Lynda Vogel Discharge Details Diagnosis: Pneumonia, IV drug abuse, Elevated lactic acid level Physicians Team ED Provider: Mukund Rivas ED Midlevel Provider: Lynda Vogel Primary Care Provider: UNKNOWN, Attending Provider: Dat Quan Status ED Status: Admitted Patient
[2018-07-30] MEDS ORDERED: Sod Chloride 0.9% Inj 1,000 ML IV.SIG ONE ×2 (03:37→04:24)
[2018-07-30 03:50] LABS: Hematocrit 31.2 % (35.0-46.0); Hemoglobin 10.6 gm/dL (11.6-15.3); Mean Corpuscular HGB Conc 33.9 % (32.0-36.0); Mean Corpuscular Hemoglobin 29.4 pg (27.0-34.0); Mean Corpuscular Volume 86.8 fL (80.0-100.0); Mean Platelet Volume 7.9 fL (7.0-11.0); Platelet Count 183 th/mm3 (150-450); Red Cell Distribution Width 15.3 % (11.6-17.2); White Blood Count 16.5 th/mm3 (4.0-11.0)
[2018-07-30 04:07] LABS: Alanine Aminotransferase 13 U/L (10-53); Albumin 1.9 g/dL (3.4-5.0); Anion Gap 6 meq/L (5-15); Aspartate Aminotransferase 33 U/L (15-37); Blood Urea Nitrogen 14 mg/dL (7-18); Calcium 7.7 mg/dL (8.5-10.1); Carbon Dioxide 35.2 meq/L (21.0-32.0); Chloride 90 meq/L (98-107); Glomerular Filtration Rate 45 mL/min (>89); Glucose,Random 151 mg/dL (74-106); Potassium 3.1 meq/L (3.5-5.1); Sodium 131 meq/L (136-145)
[2018-07-30 04:09] LABS: Alkaline Phosphatase 146 U/L (45-117); Total Protein 7.4 g/dL (6.4-8.2)
[2018-07-30] MEDS ORDERED: Vancomycin Inj 1,000 MG in Sodium Chlor 0.9% Inj 250 ML IV.SIG ONE (04:24)
[2018-07-30] MEDS ORDERED: Bisacodyl 10 MG Supp RECTAL PRN (04:40)
[2018-07-30] MEDS ORDERED: Vancomycin Consult Pharmacy OTHER PRN ×2 (04:40→04:45)
--- NOTE | 2018-07-30 04:57 | P.HPIM ---
History of Present Illness Primary Care Physician: UNKNOWN History of Present Illness: This is a 42-year-old female with a PMH of IVDU who presented to the ER with complaints of SOB x1 day. Notes non-productive cough, generalized malaise and sore throat. +Subjective fever/chills, no sick contacts. On arrival, BP 123/58, HR 94, O2 sat 100% on RA, Afebrile. WBC 16.5. K+ 3.1. Creatinine 1.31, previously 0.62 on 08/02/2016. Lactic Acid 2.4. CXR with right upper lobe infiltrate, rounded density left upper lung possible infiltrate versus mass. S/p IVF, Vanc/Rocephin/Zithro in ER. Diagnosis (1) PNA (pneumonia): (2) CARLOS (acute kidney injury): (3) IVDU (intravenous drug user): Review of Systems PAST FAMILY HISTORY: Reviewed. No h/o DM or CAD Review of Systems: all other systems reviewed are negative [facility] Social History Social History Substance History: Active Abuse Second Hand Smoke Exposure: Yes Smoking Status: Heavy tobacco smoker Tobacco Type: Cigarettes How Often Do You Have a Drink Containing Alcohol: Never Recent Travel in [place] within the Last 8 Weeks: No Recent Out of Country Travel within the Last 8 Weeks: No Substance Abuse Detail Heroin: Route Used Substance Abuse: Intravenously Immunization History Tetanus Immunization: >5 Years Medications and Allergies Allergies Allergy/AdvReac Type Severity Reaction Status Date / Time penicillin G Allergy Severe Anaphylaxis Verified 07/30/18 01:22 *MDRO Multi-Drug Resistant AdvReac Unknown unk Uncoded 07/30/18 01:22 Organism Home Medications Medication Instructions Recorded Confirmed Type No Known Home Medications 07/30/18 07/30/18 History Active Medications: Active Medications Acetaminophen (Tylenol) 650 mg PO Q4H PRN PRN Reason: Temp > 100.4 Al Hydroxide/Mg Hydroxide (Milk Of Magnesia Liq) 30 ml PO Q12H PRN PRN Reason: Mild Constipation Albuterol (Duoneb Neb (Prn)) 1 ampul NEB Q4HR NEB PRN PRN Reason: SOB/WHEEZING Bisacodyl (Dulcolax Supp) 10 mg RECTAL DAILY PRN PRN Reason: SEVERE CONSITIPATION Vancomycin HCl 1,000 mg/ (Sodium Chloride) 250 mls @ 250 mls/hr IV.SIG ONCE ONE Stop: 07/30/18 05:23 Last Admin: 07/30/18 04:37 Dose: 250 mls/hr Aztreonam 1,000 mg/ Sodium (Chloride) 100 mls @ 200 mls/hr IV.SIG Q8H CHARLENE Sodium Chloride (Ns Inj) 1,000 mls @ 100 mls/hr IV.CONT .Q10H CHARLENE Lactulose (Lactulose Liq) 30 ml PO DAILY PRN PRN Reason: SEVERE CONSITIPATION Lorazepam (Ativan Inj) 1 mg IV.PUSH Q2H PRN PRN Reason: AGITATION/WITHDRAWAL Ondansetron HCl (Zofran Inj) 4 mg IV.PUSH Q6H PRN PRN Reason: NAUSEA OR VOMITING Pharmacy Profile Note (Vancomycin Consult Pharmacy) 1 each OTHER UNSCH PRN PRN Reason: Pharmacy to dose Senna/Docusate Sodium (Cierra-Colace) 1 tab PO BID CHARLENE Sennosides (Senokot) 17.2 mg PO Q12H PRN PRN Reason: Moderate Constipation Sodium Chloride (Ns Flush) 2 ml IV.FLUSH BID CHARLENE Sodium Chloride (Ns Flush) 2 ml IV.FLUSH PRN PRN PRN Reason: FLUSH AFTER USING IV ACCESS Physical Exam Vital signs: Vital Signs 07/30/18 01:22 07/30/18 02:10 Temperature 97.2 F L Pulse Rate 89 85 Respiratory Rate 15 18 Blood Pressure 112/60 Pulse Oximetry 99 Intake & Output 07/29/18 07/29/18 07/30/18 06:59 18:59 06:59 Intake Total 100 / 100 Balance 100 / 100 Weight 49.895 kg Intake: IV 100 / 100 Rocephin Inj 1,000 MG In NS Inj 100 / 100 100 ML @ 200 mls/hr IV.SIG ONCE ONE Rx#:[id number] Narrative: PE: GENERAL: Thin middle-aged white female in no acute distress, significantly diaphoretic, sheets soaked. SKIN: Focused skin assessment warm and dry. HEENT: PERRLA, EOMI. No scleral icterus or conjunctival pallor. No lid lag or facial droop. CARDIOVASCULAR: Regular rate and rhythm. No obvious murmurs to auscultation. No chest tenderness to palpation. RESPIRATORY: No obvious rhonchi or wheezing. Clear to auscultation. Breath sounds equal bilaterally. GASTROINTESTINAL: Abdomen soft, non-tender, nondistended. BS normal. MUSCULOSKELETAL: Extremities without clubbing, cyanosis, or edema. No obvious deformities. NEUROLOGICAL: Awake, alert and oriented x4. No focal neurologic deficits. Moving both upper and lower extremities spontaneously. PSYCHIATRIC: Appropriate mood and affect. Insight and judgment normal. Results Labs CBC & Chem 7: 07/30/18 03:30 07/30/18 03:30 Imaging Impressions Chest X-Ray 07/30/18 02:00 CONCLUSION: 1. Airspace process in the right upper lobe concerning for pneumonic infiltrate. 2. Additional rounded density laterally in the left upper lung could represent additional area of infiltration or mass lesion. Recommend follow-up chest radiograph after therapy to ensure resolution. If the area persists, consider noncontrasted CT scan of the chest for further characterization. 3. Widening of the right AC joint with some bony fragmentation may represent posttraumatic changes. Caprini VTE Risk Assessment Caprini VTE Risk Assessment: No/Low Risk (score <= 1) Caprini Risk Assessment Model: Point Value = 1 Point Value = 2 Point Value = 3 Point Value = 5 Age 41-60 Minor surgery BMI > 25 kg/m2 Swollen legs Varicose veins or History of unexplained or recurrent spontaneous Oral contraceptives or hormone replacement Sepsis (< 1 month) Serious lung disease, including pneumonia (< 1 month) Abnormal pulmonary function Acute myocardial infarction Congestive heart failure (< 1 month) History of inflammatory bowel disease Medical patient at bed rest Age 61-74 Arthroscopic surgery Major open surgery (> 45 min) Laparoscopic surgery (> 45 min) Malignancy Confined to bed (> 72 hours) Immobilizing plaster cast Central venous access Age >= 75 History of VTE Family history of VTE Factor V Leiden Prothrombin [id number] Lupus anticoagulant Anticardiolipin antibodies Elevated serum homocysteine Heparin-induced thrombocytopenia Other congenital or acquired thrombophilia Stroke (< 1 month) Elective arthroplasty Hip, pelvis, or leg fracture Acute spinal cord injury (< 1 month) Prophylaxis Regimen: Total Risk Factor Score Risk Level Prophylaxis Regimen 0-1 Low Early ambulation 2 Moderate Order ONE of the following: *Sequential Compression Device (SCD) *Heparin 5000 units SQ BID 3-4 Higher Order ONE of the following medications: *Heparin 5000 units SQ TID *Enoxaparin/Lovenox 40 mg SQ daily (WT < 150 kg, CrCl > 30 mL/min) *Enoxaparin/Lovenox 30 mg SQ daily (WT < 150 kg, CrCl > 10-29 mL/min) *Enoxaparin/Lovenox 30 mg SQ BID (WT < 150 kg, CrCl > 30 mL/min) AND/OR *Sequential Compression Device (SCD) 5 or more Highest Order ONE of the following medications: *Heparin 5000 units SQ TID (Preferred with Epidurals) *Enoxaparin/Lovenox 40 mg SQ daily (WT < 150 kg, CrCl > 30 mL/min) *Enoxaparin/Lovenox 30 mg SQ daily (WT < 150 kg, CrCl > 10-29 mL/min) *Enoxaparin/Lovenox 30 mg SQ BID (WT < 150 kg, CrCl > 30 mL/min) AND *Sequential Compression Device (SCD) Assessment and Plan (1) PNA (pneumonia): Code(s): J18.9 - Pneumonia, unspecified organism Status: Acute (2) CARLOS (acute kidney injury): Code(s): N17.9 - Acute kidney failure, unspecified Status: Acute (3) IVDU (intravenous drug user): Code(s): F19.90 - Other psychoactive substance use, unspecified, uncomplicated Status: Acute Plan A/P: 1. PNA: acute onset SOB, +non-productive cough w/ worsening symptoms, CXR w/ RUL infiltrate, possible LILLIAN infiltrate vs mass, continue w/ IV Abx, follow up cultures, repeat CXR after IV Abx to eval for resolution of findings, if persistent then check CT Chest. DuoNeb prn, Mucinex. 2. CARLOS: Creatinine 1.31, previously 0.62 on 08/02/16, IVF for hydration, check U/a, check UDS, monitor I/O, repeat labs in am. 3. IVDU: On Suboxone, +IVDU, will check UDS, Ativan prn for withdrawal 4. DVT Prophylaxis: SCD/Teds 5. Social work for d/c planning as needed. 6. Case discussed w/ ER physician at length, labs/records/imaging reviewed by me.
[2018-07-30 05:10] LABS: Lymphocytes 3 % (9-44); Metamyelocytes 1 % (0-1); Monocytes 5 % (0-8)
[2018-07-30 05:13] LABS: Platelet Estimate Normal (Normal); Platelet Morphology Normal (Normal)
[2018-07-30] MEDS: Sod Chloride 0.9% Inj 1,000 ML IV.CONT SCH ×2 (06:10→16:42)
[2018-07-30 08:06] LABS: Amphetamine Screen,Urine Neg (Neg); Barbiturate Screen,Urine Neg (Neg); Cannabinoid Screen,Urine Neg (Neg); Cocaine Screen,Urine Pos (Neg)
[2018-07-30 08:08] LABS: Opiate Screen,Urine Neg (Neg)
[2018-07-30 08:12] LABS: Amorphous Sediment,Urine Few /hpf; Bacteria,Urine Few /hpf; Bilirubin,Urine Negative (Negative); Clarity,Urine Hazy (Clear); Color,Urine Yellow (Yellw/Straw); Glucose,Urine (UA) 50 mg/dL (Negative); Leukocyte Esterase,Urine Small (Negative); Mucus,Urine Few /lpf (Occasional); Nitrite,Urine Negative (Negative); Specific Gravity,Urine 1.008 (1.002-1.035); Squamous Epithelial Cell,Urine 49 /hpf (0-5); Urobilinogen,Urine 0.2 mg/dL (Less than 2)
[2018-07-30] MEDS: guaiFENesin 600 MG ER Tablet PO SCH ×2 (09:59→20:47)
[2018-07-30] MEDS: Senna/Docusate Sodium 8.6/50 MG Tablet PO SCH ×2 (09:59→20:48)
--- NOTE | 2018-07-30 11:29 | P.PNIM ---
Subjective Interval history: f/u; pneumonia in no acute distress. sob has improved. has occasional cough. no fever. Physical Exam Vital signs: Vital Signs 07/30/18 01:22 07/30/18 02:10 07/30/18 06:12 Temperature 97.2 F L Pulse Rate 89 85 60 Respiratory Rate 15 18 16 Blood Pressure 112/60 117/82 Pulse Oximetry 99 07/30/18 07:46 07/30/18 10:40 Temperature Pulse Rate 66 66 Respiratory Rate 17 16 Blood Pressure 97/60 L 99/62 L Pulse Oximetry 100 100 Intake & Output 07/29/18 07/30/18 07/30/18 18:59 06:59 18:59 Intake Total 2350 / 2350 100 / 100 Balance 2350 / 2350 100 / 100 Weight 49.895 kg Intake: IV 2350 / 2350 100 / 100 Azactam Inj 1,000 MG In NS Inj 100 / 100 100 ML @ 200 mls/hr IV.SIG Q8H CHARLENE Rx#:[id number] NS Inj 1,000 ML @ Wide Open IV. 1999 SIG BOLUS ONE Rx#:[id number] Vancomycin Inj 1,000 MG In NS 250 / 250 Inj 250 ML @ 250 mls/hr IV.SIG ONCE ONE Rx#:[id number] Rocephin Inj 1,000 MG In NS Inj 100 / 100 100 ML @ 200 mls/hr IV.SIG ONCE ONE Rx#:[id number] Constitutional no acute distress Routine Respiratory Exam Present CTA bilaterally Routine Cardiovascular Exam Present RRR Routine Abdominal Exam Present soft Routine Extremities Exam Comments: no pedal edema. Routine Neurological Exam Present alert and oriented X3 Results Labs CBC & Chem 7: 07/30/18 03:30 07/30/18 03:30 Labs: Microbiology 07/30/18 01:39 Nasal Wash Influenza Types A,B Antigen - Final Negative for FLU A and B antigen Infection due to influenza A or B cannot be ruled out since the antigen present in the sample may be below the detection limit of the test. Imaging Imaging: Impressions Chest X-Ray 07/30/18 02:00 CONCLUSION: 1. Airspace process in the right upper lobe concerning for pneumonic infiltrate. 2. Additional rounded density laterally in the left upper lung could represent additional area of infiltration or mass lesion. Recommend follow-up chest radiograph after therapy to ensure resolution. If the area persists, consider noncontrasted CT scan of the chest for further characterization. 3. Widening of the right AC joint with some bony fragmentation may represent posttraumatic changes. Assessment and Plan (1) PNA (pneumonia): Code(s): J18.9 - Pneumonia, unspecified organism Status: Acute (2) CARLOS (acute kidney injury): Code(s): N17.9 - Acute kidney failure, unspecified Status: Acute (3) IVDU (intravenous drug user): Code(s): F19.90 - Other psychoactive substance use, unspecified, uncomplicated Status: Acute Plan A/P 1. PNA: acute onset SOB, +non-productive cough w/ worsening symptoms, CXR w/ RUL infiltrate, possible LILLIAN infiltrate vs mass, continue w/ IV Abx, follow up cultures, repeat CXR after IV Abx to eval for resolution of findings, if persistent then check CT Chest. DuoNeb prn, Mucinex. 2. CARLOS/Hypokalemia: Creatinine 1.31, previously 0.62 on 08/02/16, IVF for hydration,electrolyte replacement as needed/ monitor I/O, repeat labs in am. 3. IVDU: On Suboxone, +IVDU, Ativan prn for withdrawal 4. DVT Prophylaxis: SCD/Teds
[2018-07-30] MEDS: Vancomycin Inj 1,000 MG in Sodium Chlor 0.9% Inj 250 ML IV.SIG SCH (13:07)
[2018-07-30 16:47] LABS: Other Cell Type 3 % (0-0)
[2018-07-31] MEDS: Acetaminophen 325 MG Tablet PO PRN ×2 (00:01→18:51)
[2018-07-31] MEDS: Sod Chloride 0.9% Inj 1,000 ML IV.CONT SCH ×3 (00:07→21:50)
[2018-07-31] MEDS: guaiFENesin 600 MG ER Tablet PO SCH ×2 (09:53→21:48)
[2018-07-31] MEDS: Senna/Docusate Sodium 8.6/50 MG Tablet PO SCH ×2 (09:53→21:48)
[2018-07-31 10:10] LABS: Alanine Aminotransferase 7 U/L (10-53); Albumin 1.4 g/dL (3.4-5.0); Alkaline Phosphatase 112 U/L (45-117); Anion Gap 10 meq/L (5-15); Aspartate Aminotransferase 19 U/L (15-37); Blood Urea Nitrogen 14 mg/dL (7-18); Calcium 7.5 mg/dL (8.5-10.1); Carbon Dioxide 24.2 meq/L (21.0-32.0); Chloride 105 meq/L (98-107); Glomerular Filtration Rate 68 mL/min (>89); Glucose,Random 112 mg/dL (74-106); Potassium 3.9 meq/L (3.5-5.1); Total Protein 5.8 g/dL (6.4-8.2)
[2018-07-31 10:18] LABS: Sodium 139 meq/L (136-145)
[2018-07-31] MEDS: Vancomycin Inj 1,000 MG in Sodium Chlor 0.9% Inj 250 ML IV.SIG SCH (11:01)
[2018-07-31 11:32] LABS: Baso # (Auto) 0.1 th/mm3 (0.0-0.2); Baso % (Auto) 0.6 % (0.0-2.0); Eos % (Auto) 0.2 % (0.0-4.0); Hemoglobin 9.4 gm/dL (11.6-15.3); Lymph # (Auto) 1.2 th/mm3 (1.0-4.8); Lymph % (Auto) 8.7 % (9.0-44.0); Mean Corpuscular HGB Conc 33.6 % (32.0-36.0); Mean Corpuscular Hemoglobin 29.6 pg (27.0-34.0); Mean Corpuscular Volume 88.1 fL (80.0-100.0); Mean Platelet Volume 7.9 fL (7.0-11.0); Mono # (Auto) 0.9 th/mm3 (0.0-0.9); Neut # (Auto) 12.1 th/mm3 (1.8-7.7); Neut % (Auto) 84.5 % (16.0-70.0); Platelet Count 208 th/mm3 (150-450); Red Blood Count 3.17 mil/mm3 (4.00-5.30); Red Cell Distribution Width 14.9 % (11.6-17.2); White Blood Count 14.3 th/mm3 (4.0-11.0)
--- NOTE | 2018-07-31 15:14 | P.PNIM ---
Subjective Interval history: Patient is laying in bed. She complains of a cough and left hip pain. No other complaints. Physical Exam Vital signs: Vital Signs 07/30/18 16:00 07/30/18 20:00 07/31/18 00:00 Temperature 97.2 F L 99.9 F H 100.6 F H Pulse Rate 78 95 H 109 H Respiratory Rate 17 22 24 Blood Pressure 109/76 121/58 L 125/75 Pulse Oximetry 99 96 98 07/31/18 04:00 07/31/18 08:00 07/31/18 12:00 Temperature 97.3 F L 97.1 F L 97.6 F Pulse Rate 70 85 94 H Respiratory Rate 24 18 18 Blood Pressure 121/61 136/87 157/80 H Pulse Oximetry 95 97 98 Intake & Output 07/30/18 07/31/18 07/31/18 18:59 06:59 18:59 Intake Total 2550 / 2550 1104 / 1104 1000 / 1000 Balance 2550 / 2550 1104 / 1104 1000 / 1000 Intake: IV 1450 / 1450 1100 / 1100 1000 / 1000 NS Inj 1,000 ML @ 100 mls/hr IV 1000 / 1000 1000 / 1000 1000 / 1000 .CONT .Q10H CHARLENE Rx#:[id number] Azactam Inj 1,000 MG In NS Inj 200 / 200 100 / 100 100 ML @ 200 mls/hr IV.SIG Q8H CHARLENE Rx#:[id number] Vancomycin Inj 1,000 MG In NS 250 / 250 Inj 250 ML @ 250 mls/hr IV.SIG Q24H CHARLENE Rx#:[id number] Oral 1100 / 1100 4 / 4 Other: # Voids 2 1 # Bowel Movements 0 Narrative: Patient is awake and alert S1S2 B/L rhonchi No edema of exts No focal neuro deficits. Results Labs CBC & Chem 7: 07/31/18 11:21 07/31/18 07:45 Labs: Microbiology 07/30/18 03:30 Blood - Line Aerobic Blood Culture - Preliminary S. aureus MRSA 07/30/18 03:30 Blood - Line Anaerobic Blood Culture - Preliminary S. aureus MRSA 07/30/18 03:25 Blood - Line Aerobic Blood Culture - Preliminary S. aureus MRSA 07/30/18 03:25 Blood - Line Anaerobic Blood Culture - Preliminary S. aureus MRSA 07/30/18 07:45 Clean Catch Urine Urine Culture - Preliminary S. aureus MRSA Assessment and Plan (1) PNA (pneumonia): Code(s): J18.9 - Pneumonia, unspecified organism Status: Acute (2) CARLOS (acute kidney injury): Code(s): N17.9 - Acute kidney failure, unspecified Status: Acute (3) IVDU (intravenous drug user): Code(s): F19.90 - Other psychoactive substance use, unspecified, uncomplicated Status: Acute Plan This patient is a 42 y/o F with a hx of IVDU who came into the ED with complaints of sob and a cough. 1. Severe Sepsis 2/2 MRSA bacteremia and CAPNA Patient is febrile, elevated wbc ct, Lactate 2.4 downtrending to 2.3. Follow up repeat. MRSA + blood cxs 2/2 ID consulted 2D echo ordered. On iv antibiotics. Follow up with recs from ID. Cont IVF CT chest ordered, CXR showed right upper lobe pna and a rounded density laterally in the left upper lung...possibly septic emboli Will follow up wth the CT chest and recs from ID. 2. IVDA Patient counseled on dangers of continued IV drug use. She says she will quit. SCDs for dvt prophylaxis. Progress Note: Quality VTE Deep Vein Thrombosis/Pulmonary Embolism Present on Admission: No
--- NOTE | 2018-07-31 17:33 | ECHRPT ---
Indication: sepsis poss endocariditis CONCLUSIONS The left ventricular systolic function is low normal with an estimated ejection fraction in the rang e of 50- 55%. No regional wall motion abnormalities are present. Mild concentric left ventricular hypertrophy. The aortic valve is not well visualized. There is a moderate size echodense material visualized in t he aortic valve position in the PLAX views possibly consistent with vegetation versus artifact. Clinical corre lation recommended. Consider transesophageal echocardiogram. The estimated pulmonary arterial pressure is 42 mmHg. Trivial pericardial effusion may be present. BP: / HR: Rhythm: MEASUREMENTS (Male / Female) Normal Values Technical Quality:Technically difficult study 2D ECHO LV Diastolic Diameter PLAX 3.6 cm 4.2 - 5.9 / 3.9 - 5.3 cm LV Systolic Diameter PLAX 2.9 cm IVS Diastolic Thickness 1.6 cm 0.6 - 1.0 / 0.6 - 0.9 cm LVPW Diastolic Thickness 1.1 cm 0.6 - 1.0 / 0.6 - 0.9 cm LV Relative Wall Thickness 0.8 RV Internal Dim ED PLAX 1.9 cm LVOT Diameter 1.9 cm Aortic Root Diameter 2.5 cm LA Systolic Diameter LX 2.7 cm 3.0 - 4.0 / 2.7 - 3.8 cm DOPPLER AV Peak Velocity 160.0 cm/s AV Peak Gradient 10.2 mmHg LVOT Peak Velocity 100.0 cm/s LVOT Peak Gradient 4.0 mmHg AV Area Cont Eq pk 1.8 cm Mitral E Point Velocity 90.3 cm/s Mitral A Point Velocity 74.5 cm/s Mitral E to A Ratio 1.2 LV E' Lateral Velocity 4.1 cm/s Mitral E to LV E' Lateral Ratio 22.1 LV E' Septal Velocity 10.4 cm/s Mitral E to LV E' Septal Ratio 8.7 TR Peak Velocity 282.0 cm/s TR Peak Gradient 31.8 mmHg Right Atrial Pressure 10.0 mmHg Pulmonary Artery Systolic Pressu 41.8 mmHg Right Ventricular Systolic Press 41.8 mmHg PV Peak Velocity 66.6 cm/s PV Peak Gradient 1.8 mmHg FINDINGS LEFT VENTRICLE Normal left ventricular size. Mild concentric left ventricular hypertrophy. The left ventricular systolic function is low normal with an estimated ejection fraction in the rang e of 50- 55%. No regional wall motion abnormalities are present. RIGHT VENTRICLE Normal right ventricular size and systolic function. LEFT ATRIUM The left atrial size is normal. RIGHT ATRIUM The right atrial size is normal. ATRIAL SEPTUM Normal atrial septal thickness without atrial level shunting by limited color doppler interrogation. AORTA The aortic root and proximal ascending aorta are normal in size on limited imaging. MITRAL VALVE Structurally normal mitral valve. No mitral valve stenosis or regurgitation. AORTIC VALVE The aortic valve is not well visualized. There is a moderate size echodense material visualized in the aortic valve position in the PLAX view s possibly consistent with vegetation versus artifact. Clinical correlation recommended. Consider transesophageal echocardiogram. TRICUSPID VALVE The tricuspid valve is not well visualized. The estimated pulmonary arterial pressure is 42 mmHg. PULMONARY VALVE No pulmonary valve regurgitation or stenosis. VESSELS The inferior vena cava is normal in size. PERICARDIUM Trivial pericardial effusion may be present. Juanito James (Electronically Signed) Final Date:31 July 2018 17:33
--- NOTE | 2018-07-31 18:40 | XR ---
EXAM DATE: 07/31/2018 6:37 PM EST AGE/SEX: 42 years / Female INDICATIONS: Left hip pain. No known injury. CLINICAL DATA: This is the patient's initial encounter. Patient reports that signs and symptoms have been present for 4 - 6 days and indicates a pain score of 10/10. MEDICAL/SURGICAL HISTORY: None. None. COMPARISON: No prior exams available for comparison. FINDINGS: Bony structures are intact and in normal alignment. Joints are intact without dislocation or signifi cant arthropathy. Osseous density is normal. Soft tissues are unremarkable. No radiopaque foreign bodies seen. CONCLUSION: No acute fracture left hip Electronically signed by: Andrews Wong MD Board Certified Radiologist 07/31/2018 6:39 PM EST
--- NOTE | 2018-07-31 18:51 | CT ---
EXAM DATE: 07/31/2018 6:30 PM EST AGE/SEX: 42 years / Female INDICATIONS: Pneumonia CLINICAL DATA: This is the patient's initial encounter. Patient reports that signs and symptoms have been present for 1 day and indicates a pain score of 4/10. MEDICAL/SURGICAL HISTORY: None. None. RADIATION DOSE: 6.27 CTDI (mGy) COMPARISON: [facility], CHEST 1V SINGLE AP, 07/30/2018. . TECHNIQUE: Multiple contiguous axial images were obtained through the chest without contrast. Image s were obtained in suspended respiration using multiple row detector helical technique. Using automa rona exposure control and adjustment of the mA and/or kV according to patient size, radiation dose was kept as low as reasonably achievable to obtain optimal diagnostic quality images. DICOM format imag e data is available electronically for review and comparison. FINDINGS: Lungs: Right upper lobe masslike cavitary consolidation measures 4.6 cm. Numerous bilateral nodular densities many of which contain cavitation measuring in size from 2 to 24 mm. Mediastinum: There is good visualization of the great vessels of the middle mediastinum. No evidenc e of mediastinal or hilar adenopathy/mass. Pleurae: Small right pleural effusion. Axillae: Unremarkable. Bony Structures: Unremarkable. Miscellaneous: The examination was extended to include the upper abdomen, and both adrenal glands ar e normal in size and configuration. CONCLUSION: 1. Cavitary consolidation right upper lobe. 2. Numerous bilateral cavitary nodules. 3. Small right pleural effusion. 4. Septic emboli is the primary consideration. TB and fungal infections less likely. Electronically signed by: Andrews Wong MD Board Certified Radiologist 07/31/2018 6:50 PM EST
[2018-07-31] MEDS ORDERED: SODIUM CHLOR 0.9% IV.SIG SCH (21:00)
[2018-07-31] MEDS ORDERED: VANCOMYCIN IV.SIG SCH (21:00)
[2018-08-01] MEDS ORDERED: SODIUM CHLOR 0.9% IV.SIG SCH ×2
[2018-08-01] MEDS ORDERED: VANCOMYCIN IV.SIG SCH ×2
[2018-08-01] MEDS: Acetaminophen 325 MG Tablet PO PRN (00:36)
[2018-08-01] MEDS ORDERED: Vancomycin Inj 500 MG in Sodium Chlor 0.9% Inj 100 ML IV.SIG SCH (01:00)
[2018-08-01 04:46] VITALS: RESP 17
[2018-08-01 08:34] VITALS: BP 156/94; PULSE 85; TEMP 99.3; O2SAT 98
[2018-08-01] MEDS ORDERED: Pharmacy Ordered Lab Info OTHER ONE ×2 (10:45→11:45)
--- NOTE | 2018-08-01 10:49 | P.DS ---
DS: Providers Date of admission: 07/30/18 04:40 Primary care physician: UNKNOWN Consults: 07/31/18 15:06 Consult to Infectious Diseases Routine Consulting Provider: Jeanie Joiner Reason for Consultation: MRSA bacteremia Notified:: Service Spoke with:: evangelista Date Notified:: 07/31/18 Time Notified:: 15:18 Ordering Provider: JONNIE 07/31/18 18:17 Consult to Cardiology Routine Consulting Provider: Juanito James Does the patient have a Assistant Attorney General who follows them?: No Preferred Yarding Supervisor:: Property Worker Physician Reason for Consultation: REJI, vegetations on aortic valve Notified:: Service Spoke with:: tamela Date Notified:: 07/31/18 Time Notified:: 18:23 Ordering Provider: JONNIE Brief History from admission: This is a 42-year-old female with a PMH of IVDU who presented to the ER with complaints of SOB x1 day. Notes non-productive cough, generalized malaise and sore throat. +Subjective fever/chills, no sick contacts. On arrival, BP 123/58, HR 94, O2 sat 100% on RA, Afebrile. WBC 16.5. K+ 3.1. Creatinine 1.31, previously 0.62 on 08/02/2016. Lactic Acid 2.4. CXR with right upper lobe infiltrate, rounded density left upper lung possible infiltrate versus mass. S/p IVF, Vanc/Rocephin/Zithro in ER. DS: Diagnosis Discharge Diagnosis (1) PNA (pneumonia): Status: Acute (2) CARLOS (acute kidney injury): Status: Acute (3) IVDU (intravenous drug user): Status: Acute DS: Summary 08/01/18 This patient is a 42 y/o F with a hx of IVDU who came into the ED with complaints of sob and a cough. She was found to have MRSA bacteremia and 2Decho showed possible vegetations on the aortic valve concerning for endocarditits. Cardiology was consulted and the patient had been on antibiotics. She decided to leave AMA this morning. Risks and continued IVDA and not allowing for treatment were discussed with the patient during the hopspitalization. She was alert and oriented x 3 and understood these risks. I was called by the nurse this morning that the patient got dressed and left against medical advice. 1. Severe Sepsis 2/2 MRSA bacteremia and CAPNA Patient is febrile, elevated wbc ct, Lactate 2.4 downtrending to 2.3. Follow up repeat. MRSA + blood cxs / ID consulted 2D echo ordered. On iv antibiotics. Follow up with recs from ID. Cont IVF CT chest ordered, CXR showed right upper lobe pna and a rounded density laterally in the left upper lung...possibly septic emboli Will follow up wth the CT chest and recs from ID. 2. IVDA Patient counseled on dangers of continued IV drug use. She says she will quit. Time Spent with Patient Total time spent providing and/or coordinating discharge services: Quality: VTE Deep Vein Thrombosis/Pulmonary Embolism Present on Admission: No Exam Narrative Exam Narrative: Not able to complete a physical examination today. Results Labs on day of discharge: Labs from last 24 hours 07/31/18 07/31/18 16:44 11:21 WBC 14.3 H RBC 3.17 L Hgb 9.4 L Hct 28.0 L MCV 88.1 MCH 29.6 MCHC 33.6 RDW 14.9 Plt Count 208 MPV 7.9 Prelim Diff (Auto) Slide review pending Neut % (Auto) 84.5 H Lymph % (Auto) 8.7 L [place] % (Auto) 6.0 Eos % (Auto) 0.2 Baso % (Auto) 0.6 Neut # (Auto) 12.1 H Lymph # (Auto) 1.2 [place] # (Auto) 0.9 Eos # (Auto) 0.0 Baso # (Auto) 0.1 WBC Differential . Diff Scan Auto diff confirmed Differential Comment . Lactic Acid 2.2 H Impressions ITS Impressions Chest X-Ray 07/30/18 02:00 CONCLUSION: 1. Airspace process in the right upper lobe concerning for pneumonic infiltrate. 2. Additional rounded density laterally in the left upper lung could represent additional area of infiltration or mass lesion. Recommend follow-up chest radiograph after therapy to ensure resolution. If the area persists, consider noncontrasted CT scan of the chest for further characterization. 3. Widening of the right AC joint with some bony fragmentation may represent posttraumatic changes. Chest CT 07/31/18 00:00 CONCLUSION: 1. Cavitary consolidation right upper lobe. 2. Numerous bilateral cavitary nodules. 3. Small right pleural effusion. 4. Septic emboli is the primary consideration. TB and fungal infections less likely. Hip X-Ray 07/31/18 00:00 CONCLUSION: No acute fracture left hip Discharge Plan Discharge Disposition Patient Disposition: 07 Against Medical Advice Discharge Condition Condition: Stable Discharge Order Discharge Orders: AMA Discharge (Routine); Ordered 08/01/18 Ordered By: Bobby Kovacs Physicians Team ED Provider: Mukund Rivas ED Midlevel Provider: Lynda Vogel Primary Care Provider: ACRLOTTA, Attending Provider: Bobby Kovacs Other Providers: Jeanie Joiner ; Juanito James Rxs /Orders / Referrals /Forms Prescriptions: No Action No Known Home Medications RF: 0 Referrals: UNKNOWN, [Primary Care Provider] - See Instructions Status ED Status: Left Department Discharge Information Discharge Date/Time: 08/01/18 09:14
--- NOTE | 2018-08-01 12:20 | P.CONCA ---
History of Present Illness Service: cardiology service call Consult date: 08/01/18 Requesting Physician: Bobby Kovacs Primary Care Provider: UNKNOWN Chief Complaint: sepsis possible endocarditis History of Present Illness: 42-year-old female with a PMH of IVDU admitted with complaints of SOB x1 day. Patient is not in room currently and appears to have possibly eloped. Staff ae looking for her in the hospital currently. HPI is taken from chart review. Apparently patient noted non-productive cough, generalized malaise and sore throat. +Subjective fever/chills, no sick contacts. On arrival, BP 123/58, HR 94, O2 sat 100% on RA, Afebrile. WBC 16.5. K+ 3.1. Creatinine 1.31, previously 0.62 on 08/02/2016. Lactic Acid 2.4. CXR with right upper lobe infiltrate, rounded density left upper lung possible infiltrate versus mass. Initially provided IVF, Vanc/Rocephin/Zithro in ER. CT chest shows multiple cavitary nodules possibly consistent with septic emboli. BCx were positive for MRSA x 2 sets. Echo yesterday showed possible vegetation on the aortic valve versus artifact and a REJI was recommended for further evaluation. Review of Systems unable to obtain. patient is not present and may have eloped from hospital. other PMFSH - History History Provided By: Patient - Medical History Medical History: Medical History (Last Updated 08/01/18 @ 08:36 by Deana Larry) MDRO (multiple drug resistant organisms) resistance - Tobacco History Second Hand Smoke Exposure: Yes Tobacco Use In Past 30 Days: Yes Smoking Status: Heavy tobacco smoker Tobacco Type: Cigarettes - Alcohol History How Often Do You Have a Drink Containing Alcohol: Never - Substance Use History Substance History: Active Abuse - Substance Use Type Heroin Route Used: Intravenously - Travel History Recent Travel in the [place] Within the Last 8 Weeks: No Recent Travel Out of the Country Within the Last 8 Weeks: No - Immunization History Tetanus Immunization: >5 Years Medications and Allergies Allergies Allergy/AdvReac Type Severity Reaction Status Date / Time penicillin G Allergy Severe Anaphylaxis Verified 07/30/18 01:22 Home Medications Medication Instructions Recorded Confirmed Type No Known Home Medications 07/30/18 07/30/18 History Exam Vital signs: Vital Signs 07/31/18 15:15 07/31/18 19:20 07/31/18 20:00 Temperature 97.3 F L 98.5 F Pulse Rate 90 99 H Respiratory Rate 19 16 16 Blood Pressure 152/93 H 152/90 H Pulse Oximetry 98 98 08/01/18 00:00 08/01/18 01:41 08/01/18 04:00 Temperature 100.0 F H 98.5 F Pulse Rate 86 86 Respiratory Rate 19 16 17 Blood Pressure 162/91 H 154/92 H Pulse Oximetry 99 17 L 08/01/18 08:00 Temperature 99.3 F Pulse Rate 85 Respiratory Rate 17 Blood Pressure 156/94 H Pulse Oximetry 98 Intake & Output 07/31/18 08/01/18 08/01/18 18:59 06:59 18:59 Intake Total 1920 / 1920 1800 / 1800 250 / 250 Balance 1920 / 1920 1800 / 1800 250 / 250 Intake: IV 1200 / 1200 1200 / 1200 250 / 250 NS Inj 1,000 ML @ 100 mls/hr IV 1000 / 1000 1000 / 1000 .CONT .Q10H [facility] Rx#:[id number] Azactam Inj 1,000 MG In NS Inj 200 / 200 100 / 100 100 ML @ 200 mls/hr IV.SIG Q8H [facility] Rx#:[id number] Vancomycin Inj 1,000 MG In NS 250 / 250 Inj 250 ML @ 250 mls/hr IV.SIG Q24H [facility] Rx#:[id number] Vancomycin Inj 500 MG In NS Inj 100 / 100 100 ML @ 200 mls/hr IV.SIG Q12H [facility] Rx#:[id number] Oral 720 / 720 600 / 600 Other: # Voids 3 # Bowel Movements 0 Results 07/31/18 11:21 07/31/18 07:45 Cardiac Enzymes 07/31/18 Range/Units 07:45 AST 19 (15-37) U/L CBC 07/31/18 Range/Units 11:21 WBC 14.3 H (4.0-11.0) th/mm3 RBC 3.17 L (4.00-5.30) mil/mm3 Hgb 9.4 L (11.6-15.3) gm/dL Hct 28.0 L (35.0-46.0) % Plt Count 208 (150-450) th/mm3 Neut # (Auto) 12.1 H (1.8-7.7) th/mm3 Lymph # (Auto) 1.2 (1.0-4.8) th/mm3 [place] # (Auto) 0.9 (0.0-0.9) th/mm3 Eos # (Auto) 0.0 (0.0-0.4) th/mm3 Baso # (Auto) 0.1 (0.0-0.2) th/mm3 Comprehensive Metabolic Panel 07/31/18 Range/Units 07:45 Sodium 139 (136-145) meq/L Potassium 3.9 D (3.5-5.1) meq/L Chloride 105 D (98-107) meq/L Carbon Dioxide 24.2 D (21.0-32.0) meq/L BUN 14 (7-18) mg/dL Creatinine 0.92 (0.50-1.00) mg/dL Calcium 7.5 L (8.5-10.1) mg/dL AST 19 (15-37) U/L ALT 7 L (10-53) U/L Alkaline Phosphatase 112 (45-117) U/L Total Protein 5.8 L D (6.4-8.2) g/dL Albumin 1.4 L (3.4-5.0) g/dL Intake and Output 07/31/18 08/01/18 08/01/18 22:59 06:59 14:59 Intake Total 1920 / 1920 800 / 800 250 / 250 Balance 1920 / 1920 800 / 800 250 / 250 Intake: IV 1200 / 1200 200 / 200 250 / 250 NS Inj 1,000 ML @ 100 mls/hr IV 1000 / 1000 .CONT .Q10H [facility] Rx#:[id number] Azactam Inj 1,000 MG In NS Inj 200 / 200 100 / 100 100 ML @ 200 mls/hr IV.SIG Q8H [facility] Rx#:[id number] Vancomycin Inj 1,000 MG In NS 250 / 250 Inj 250 ML @ 250 mls/hr IV.SIG Q24H [facility] Rx#:[id number] Vancomycin Inj 500 MG In NS Inj 100 / 100 100 ML @ 200 mls/hr IV.SIG Q12H [facility] Rx#:[id number] Oral 720 / 720 600 / 600 Other: # Voids 3 # Bowel Movements 0 - Imaging and Cardiology Imaging: Impressions Chest CT 07/31/18 00:00 CONCLUSION: 1. Cavitary consolidation right upper lobe. 2. Numerous bilateral cavitary nodules. 3. Small right pleural effusion. 4. Septic emboli is the primary consideration. TB and fungal infections less likely. Hip X-Ray 07/31/18 00:00 CONCLUSION: No acute fracture left hip Assessment and Plan - Plan Assessment: Possible bacterial endocarditis Sepsis with MRSA bacteremia CT Chest with multiple cavitary nodules possibly consistent with septic emboli polysubstance use with UDS + cocaine this admission Recommendation: It appears the patient may have eloped from the hospital. Please call back if patient is amenable to undergo REJI for further evaluation of possible infectious endocarditis. Defer rest of management to primary team.
[2018-08-01 12:26] LABS: Calcium 8.2 mg/dL (8.5-10.1); Carbon Dioxide 22.8 meq/L (21.0-32.0); Magnesium 2.3 mg/dL (1.5-2.5)
== END 2018-08-01 09:14 | disposition left against medical advice (07) | DRG 871 ==
LOC: NEPB 01:17 → NEDA 04:40 → N07 11:17
PROVIDERS: ADMIT Hospitalist; ATTEND Hospitalist
DX: M25.552 Pain in left hip; A41.02 Sepsis due to Methicillin resistant Staphylococcus aureus; R65.20 Severe sepsis without septic shock; F17.210 Nicotine dependence, cigarettes, uncomplicated; N17.9 Acute kidney failure, unspecified; F19.10 Other psychoactive substance abuse, uncomplicated; E87.6 Hypokalemia; J18.9 Pneumonia, unspecified organism; I76 Septic arterial embolism
CPT/HCPCS: 71010; 71045; 71250; 73502; 76937; 80048; 80053; 80307; 81001; 83605; 83735; 85025; 86403; 87040; 87086; 87147; 87186; 87205; 87275; 87276; 87804; 90774; 90784; 93306; 94664; 96374; 99285; C8952; J0696; J3370; J7030; J7050; J7506; J7512